=== PATIENT | female | born 1960 | race Caucasian/White ===

== ENCOUNTER 2020-03-31 11:50 | Outpatient (REF) | payer BC, SELFPAY | END 2020-03-31 11:51 | disposition home or self-care (01) | LOC: HO.LAB 11:50 | PROVIDERS: Visit Provider Internal Medicine | DX: Z01.419 Encounter for gynecological examination (general) (routine) without abnormal findings (principal) | CPT/HCPCS: 88142 ==

== ENCOUNTER 2020-04-02 | Outpatient (REF) | payer BC, SELFPAY ==
[2020-04-02 11:28] LABS: Urine Cytology See Pathology rpt
== END 2020-04-02 00:01 | disposition home or self-care (01) ==
LOC: HO.HMGCLNP
PROVIDERS: PCP Internal Medicine; Visit Provider Internal Medicine
DX: R31.29 Other microscopic hematuria (principal)
CPT/HCPCS: 88112

== ENCOUNTER 2020-04-19 13:49 | Outpatient (REF) | payer BC, SELFPAY ==
--- NOTE | 2020-04-19 13:52 | US_ITS ---
EXAMINATION: US RETROPERITONEAL LIMITED (RENAL ONLY) CLINICAL INFORMATION: Microscopic hematuria. COMPARISON: CT abdomen and pelvis dated 12/24/2018 TECHNIQUE: Real-time imaging of the kidneys. FINDINGS: RIGHT KIDNEY: 11.2 x 4.9 x 6.3 cm (SAG x AP x TRV). The kidney is normal in size, contour, and echogenicity. Renal cortical thickness is normal. No calculi or focal parenchymal lesions. No hydronephrosis. LEFT KIDNEY: 12.1 x 5.8 x 5.9 cm (SAG x AP x TRV). The kidney is normal in size, contour, and echogenicity. Renal cortical thickness is normal. No renal calculi or hydronephrosis. There is an anechoic cyst in the upper pole measuring 1.5 x 1.2 cm. A small cyst was seen on the previous CT abdomen exam 12/24/2018. US/US renal BI IMPRESSION: Small anechoic cyst upper pole left kidney measuring 1.[address] it measured 1 cm. Unremarkable right kidney. There are no echogenic bilateral renal calculi or hydronephrosis.
== END 2020-04-19 13:50 | disposition home or self-care (01) ==
LOC: HO.US 13:49
PROVIDERS: PCP Internal Medicine; Visit Provider Internal Medicine
DX: R31.29 Other microscopic hematuria (principal); E78.5 Hyperlipidemia, unspecified; E03.9 Hypothyroidism, unspecified; F17.200 Nicotine dependence, unspecified, uncomplicated
CPT/HCPCS: 76775

== ENCOUNTER 2020-04-29 09:01 | Outpatient (REF) | payer BC, SELFPAY ==
[2020-04-29 13:55] LABS: Urine Cytology See Pathology rpt
== END 2020-04-29 09:02 | disposition home or self-care (01) ==
LOC: HO.LNP 09:01
PROVIDERS: PCP Internal Medicine; Visit Provider Urology
DX: R31.29 Other microscopic hematuria (principal)
CPT/HCPCS: 81002; 88112

== ENCOUNTER → 2020-06-10 12:45 | Outpatient (BNVA) | payer BC, SELFPAY | PROVIDERS: PCP Internal Medicine; Visit Provider Urology | DX: N32.89 Other specified disorders of bladder (principal) | CPT/HCPCS: 52000; 81002 ==

== ENCOUNTER 2020-07-05 06:18 | Day surgery (SDC) | payer BC, SELFPAY ==
[2020-06-29 12:26] VITALS: BMI 28.3
[2020-07-05 06:48] VITALS: BP 138/74; PULSE 73; RESP 18; TEMP 37.1; O2SAT 98
--- NOTE | 2020-07-05 07:24 | P.CONAN_ITS ---
[facility] Active Problems Active Problems: All Active Problems (Updated 06/29/20 @ 12:23 by Morelia rincon) Erythematous bladder mucosa (Acute) Hypothyroidism (Acute) Tobacco dependence (Acute) Annual physical exam (Acute) Microhematuria (Acute) Past Medical History Medical History (Updated 06/29/20 @ 12:23 by Morelia Fraire) Annual physical exam Hyperlipidemia Hypothyroidism Microhematuria Murmur Tobacco dependence Family History Family History Father Dementia Mother Myocardial infarction Surgical History Surgical History (Updated 06/29/20 @ 12:24 by Morelia Fraire) H/O colonoscopy Hx of cystoscopy Hx of tubal ligation Social History Social History (Updated 06/29/20 @ 12:23 by Morelia Fraire) Alcohol intake: current Alcohol intake frequency: holidays/special occasions only Smoking Status: Current every day smoker Cigarettes Per Day: 10 Years Smoked: 44 Use of substances other than those prescribed or required for medical reasons: No Have you been hit, kicked, punched, or otherwise hurt by someone within the past year? If so, by whom?: No Advance Directives: No Advance Directives Information Provided: No Advance Directives on File: No Meds Allergies Allergy/AdvReac Type Severity Reaction Status Date / Time amoxicillin Allergy Severe diarrhea Verified 06/29/20 12:24 Sulfa (Sulfonamide Allergy Severe hives Verified 06/29/20 12:25 Antibiotics) Active Medications: Current Medications Generic Name Dose Route Start Last Admin Trade Name Freq PRN Reason Stop Dose Admin Lactated Ringer's 1,000 mls @ 50 mls/hr 07/05/20 07:30 Lr IV .Q20H BRAD Home Medications Medication Instructions Recorded Confirmed Last Taken Type simvastatin 40 mg tablet 40 mg PO DAILY 03/31/20 06/29/20 Unknown History Exam Exam Date and Time: July 05, [id number] Height,Weight and Vital Signs: Height 5 ft 5 in Weight 77.111 kg Last Vital Signs Temp 98.7 F 07/05/20 06:48 Pulse 73 07/05/20 06:48 Resp 18 07/05/20 06:48 BP 138/74 07/05/20 06:48 Pulse Ox 98 07/05/20 06:48 Airway Mallampati Class: II TM Dist: >3cm Neck ROM: Full Heart: RRR Lungs: CTAcBL Assessment and Plan Assessment Anesthesia Assessment: Anesthesia Plan Discussed and Chart Reviewed Final Anesthetic Review NPO: Yes ASA Class: II Final Preanesthetic Review: No Changes in Pt Med Stat and Consent Obtained/Reviewed Patient Risk: Intermediate Procedure Risk: Intermediate Anesthetic Plan Anesthetic Plan: MAC: Disposition: Standard PACU
[2020-07-05] MEDS: levoFLOXacin 500 MG TABLET PO (07:35)
[2020-07-05] MEDS: Lactated Ringers 1,000 ML 50 ML IV (07:36)
--- NOTE | 2020-07-05 08:18 | MHC.SHP ---
Pre-Procedural Eval Section A The patient is an INPATIENT: No Changes since office visit: No Cold of Flu in the past 2 weeks, No New Medical Problems, No Changes in Medication and No Patient answered all questions The History & Physical has been completed within 30 days and I have reviewed it.: Yes Section B Chief Complaint: Disorder of bladder Allergies: Allergies Allergy/AdvReac Type Severity Reaction Status Date / Time amoxicillin Allergy Severe diarrhea Verified 06/29/20 12:24 Sulfa (Sulfonamide Allergy Severe hives Verified 06/29/20 12:25 Antibiotics) Plan I have reviewed the history and physical and performed a pertinent physical examination on my patient. No changes have occurred unless specified. Cystoscopy, bladder biopsy fulguration
--- NOTE | 2020-07-05 08:50 | PM.OP ---
Brief Operative Note Date of Service: 07/05/20 Pre-op diagnosis: Bladder lesion Post-op diagnosis: same Procedure: Bladder biopsy with fulguration Surgeon: Jack Traore MD Anesthesia: MAC Estimated blood loss (mL): 0 Pathology: other (Bladder biopsy) Condition: stable Disposition: same day
--- NOTE | 2020-07-05 08:52 | W.PM.OPN ---
Operative Note Operative Note Date of Service: 07/05/20 Narrative: PreOperative Diagnosis: A bladder erythema Post Operative Diagnosis: Bladder erythema Procedure: Cystoscopy with bladder biopsy fulguration Surgeon: Dr Jack Traore Anesthesia: Sedation Indications for procedure: Bladder erythema on cystoscopy for microscopic hematuria Procedure: After informed consent was verified the patient was brought to the operating room and placed in a supine position. anesthesia was administered per protocol. Patient was placed in a modified dorsal lithotomy position and prepped and draped in sterile fashion. Antibiotics being given. Safety pause time-out was performed. Cystoscope was placed. The bladder had injected erythema posteriorly. There were 2 or 3 areas of neovascularity. These were biopsied and fulgurated. She tolerated this well and transferred in a stable condition to recovery area Pathology: Bladder biopsies Drains: None
[2020-07-05 08:58] VITALS: BP 121/61; PULSE 68; RESP 16; TEMP 37.1; O2SAT 96
[2020-07-05 09:02] VITALS: BP 141/65; PULSE 70; RESP 16; O2SAT 97
[2020-07-05 09:07] VITALS: BP 137/93; PULSE 63; RESP 16; O2SAT 97
[2020-07-05] MEDS: Phenazopyridine HCL 100 MG TABLET PO (09:09)
[2020-07-05 09:11] VITALS: BP 153/68; PULSE 65; RESP 16; O2SAT 98
[2020-07-05 09:24] VITALS: BP 128/68; PULSE 65; RESP 16; O2SAT 100
[2020-07-05] MEDS: NaPROXEN 500 MG TABLET PO (09:26)
== END 2020-07-05 10:10 | disposition home or self-care (01) ==
PROVIDERS: PCP Internal Medicine; Visit Provider Urology
PROC: 0T5B8ZZ Destruction of Bladder, Via Natural or Artificial Opening Endoscopic (ICD-10-PCS; CPT 52204; principal; 2020-07-05 08:00)
DX: N30.20 Other chronic cystitis without hematuria (principal); R31.29 Other microscopic hematuria; F17.210 Nicotine dependence, cigarettes, uncomplicated; Z79.899 Other long term (current) drug therapy; Z88.1 Allergy status to other antibiotic agents; Z88.2 Allergy status to sulfonamides
CPT/HCPCS: 52204; 88305; J2250; J3010

== ENCOUNTER → 2020-07-20 15:08 | Outpatient (BNVA) | payer BC, SELFPAY | PROVIDERS: PCP Internal Medicine; Visit Provider Urology ==

== ENCOUNTER 2021-03-10 06:14 | Outpatient (REF) | payer BC, SELFPAY ==
[2021-03-10 11:16] LABS: Appearance Urine HAZY; Color Urine YELLOW; Glucose Urine UA NEG (NEG); Leukocyte Esterase Urine NEG (NEG); Nitrite Urine NEG (NEG); Specific Gravity - Urine 1.015 (1.005-1.025); Urine Blood 3+ (NEG); Urine Ketones NEG (NEG); Urine Protein 1+ MG/DL (NEG-TRACE)
[2021-03-10 11:22] LABS: Hematocrit 40.2 % (37.0-47.0); Hemoglobin 13.3 g/dl (12.0-16.0); Mean Corpuscular HGB Conc 33.1 g/dl (31.0-35.0); Mean Corpuscular Hemoglobin 31.6 pg (27.0-33.0); Mean Corpuscular Volume 95.5 fL (80.0-98.0); Mean Platelet Volume 11.3 fL (9.4-12.3); Platelet Count 281 X10*3/uL (160-400); Red Blood Count 4.21 X10*6/uL (4.20-5.50); Red Cell Distribution Width 13.2 % (11.0-16.0); White Blood Count 7.6 X10*3/uL (4.8-10.8)
[2021-03-10 11:34] LABS: Alanine Aminotransferase 16 U/L (0-31); Albumin Level 4.2 g/dL (3.5-5.0); Alkaline Phosphatase 60 U/L (39-117); Anion Gap 13 (12-20); Aspartate Amino Transferase 16 U/L (5-31); Bilirubin Total 0.5 mg/dL (0.0-1.0); Blood Urea Nitrogen 12 mg/dL (9-16); Calcium 8.8 mg/dL (8.4-10.2); Carbon Dioxide 27 mmol/L (22-29); Chloride 107 mmol/L (96-108); Cholesterol 165 mg/dL; Estimated Glomerular Filt Rate > 60; Glucose Fasting 97 mg/dL (60-99); HDL Cholesterol 52 mg/dL; LDL Cholesterol Calculated 95 mg/dl; Sodium 143 mmol/L (135-145); Total Protein 6.7 g/dL (6.5-8.0); Triglycerides 93 mg/dL
[2021-03-10 11:40] LABS: Squamous Epithelial Cell Urine 2+ /LPF; WBC Urine 0 /HPF (0-4)
[2021-03-10 11:56] LABS: TSH reflex Free T4 1.03 uIU/mL (0.32-4.0)
== END 2021-03-10 06:15 | disposition home or self-care (01) ==
LOC: HO.HMGCLDS 06:14
PROVIDERS: PCP Internal Medicine; Visit Provider Internal Medicine
DX: Z00.00 Encounter for general adult medical examination without abnormal findings (principal); E03.9 Hypothyroidism, unspecified; F17.200 Nicotine dependence, unspecified, uncomplicated; R31.29 Other microscopic hematuria
CPT/HCPCS: 36415; 80053; 80061; 81001; 84443; 85027

== ENCOUNTER 2021-11-29 11:01 | Outpatient (REF) | payer OTHER, SELFPAY ==
[2021-12-03 14:37] LABS: HPV mRNA E6/E7 Not Detected (Not Detected)
== END 2021-11-29 11:02 | disposition home or self-care (01) ==
LOC: HO.LAB 11:01
PROVIDERS: Visit Provider Internal Medicine
DX: Z01.419 Encounter for gynecological examination (general) (routine) without abnormal findings (principal); Z11.51 Encounter for screening for human papillomavirus (HPV)
CPT/HCPCS: 87624; 88142

== ENCOUNTER 2021-11-30 07:56 | Outpatient (REF) | payer OTHER, SELFPAY ==
[2021-11-30 11:27] LABS: MANUAL DIFF FLAG NO
[2021-11-30 11:55] LABS: Basophils Absolute Auto 0.1 X10*3/uL (0.0-0.2); Basophils Percent Auto 1.1 % (0-2); Eosinophils Absolute Auto 0.2 X10*3/uL (0.0-0.4); Eosinophils Percent Auto 3.4 % (0-4); Hematocrit 41.5 % (37.0-47.0); Hemoglobin 13.8 g/dl (12.0-16.0); Imm Gran Abs Auto 0.03 X10*3/uL (0.00-0.03); Imm Gran Pct Auto 0.5 % (0.0-0.4); Lymphocytes Percent Auto 32.4 % (20-40); Mean Corpuscular HGB Conc 33.3 g/dl (31.0-35.0); Mean Corpuscular Hemoglobin 32.7 pg (27.0-33.0); Mean Corpuscular Volume 98.3 fL (80.0-98.0); Mean Platelet Volume 10.6 fL (9.4-12.3); Monocytes Absolute Auto 0.5 X10*3/uL (0.1-1.2); Neutrophils Absolute Auto 3.4 x10*3/uL (2.0-8.3); Neutrophils Percent Auto 54.6 % (45-73); Platelet Count 274 X10*3/uL (160-400); Red Blood Count 4.22 X10*6/uL (4.20-5.50); Red Cell Distribution Width 13.1 % (11.0-16.0); White Blood Count 6.1 X10*3/uL (4.8-10.8)
[2021-11-30 14:26] LABS: TSH reflex Free T4 1.09 uIU/mL (0.32-4.0)
[2021-11-30 14:46] LABS: Alanine Aminotransferase 17 U/L (0-31); Albumin Level 4.4 g/dL (3.5-5.0); Alkaline Phosphatase 59 U/L (39-117); Anion Gap 15 (12-20); Aspartate Amino Transferase 16 U/L (5-31); Bilirubin Total 0.4 mg/dL (0.0-1.0); Blood Urea Nitrogen 12 mg/dL (9-16); Calcium 9.4 mg/dL (8.4-10.2); Carbon Dioxide 29 mmol/L (22-29); Chloride 105 mmol/L (96-108); Cholesterol 184 mg/dL; Estimated Glomerular Filt Rate > 60; Glucose Fasting 95 mg/dL (60-99); HDL Cholesterol 51 mg/dL; LDL Cholesterol Calculated 108 mg/dl; Potassium 4.7 mmol/L (3.3-5.1); Sodium 144 mmol/L (135-145); Total Protein 6.9 g/dL (6.5-8.0); Triglycerides 127 mg/dL
== END 2021-11-30 07:57 | disposition home or self-care (01) ==
LOC: HO.HMGCLDS 07:56
PROVIDERS: PCP Internal Medicine; Visit Provider Internal Medicine
DX: Z00.00 Encounter for general adult medical examination without abnormal findings (principal); E78.5 Hyperlipidemia, unspecified
CPT/HCPCS: 36415; 80053; 80061; 84443; 85025

== ENCOUNTER 2021-12-01 07:08 | Outpatient (REF) | payer OTHER, SELFPAY ==
[2021-12-01 11:29] LABS: Appearance Urine CLEAR; Color Urine YELLOW; Glucose Urine UA NEG (NEG); Leukocyte Esterase Urine NEG (NEG); Nitrite Urine NEG (NEG); PH 6.5 (5.0-8.0); Specific Gravity - Urine 1.015 (1.005-1.025); Urine Blood 3+ (NEG); Urine Ketones NEG (NEG); Urine Protein NEG (NEG-TRACE)
[2021-12-01 11:48] LABS: Squamous Epithelial Cell Urine TRACE /LPF; WBC Urine 0-2 /HPF (0-4)
== END 2021-12-01 07:09 | disposition home or self-care (01) ==
LOC: HO.HMGCLDS 07:08
PROVIDERS: PCP Internal Medicine; Visit Provider Internal Medicine
DX: Z00.00 Encounter for general adult medical examination without abnormal findings (principal); E78.5 Hyperlipidemia, unspecified
CPT/HCPCS: 81001

== ENCOUNTER 2022-04-06 10:10 | Emergency (ER) | payer OTHER, SELFPAY ==
[2022-04-06] VITALS (7 sets, daily range): BP systolic 133–168; BP diastolic 56–83; PULSE 63–84; RESP 17–20; TEMP 36.4; O2SAT 95–97; BMI 28.3
--- NOTE | ~2022-04-06 | CT_ITS ---
EXAMINATION: CT ABDOMEN AND PELVIS WITHOUT CONTRAST CLINICAL INFORMATION: Right flank pain/renal stone COMPARISON: Ultrasound kidneys 04/19/[address] abdomen pelvis 12/24/2018 TECHNIQUE: Multidetector volumetric imaging was performed from the superior aspect of the liver through the pubic symphysis. Sagittal and coronal reformatted images were obtained on the technologist's workstation. This CT examination was performed using dose optimization techniques as appropriate, variously including the following: *Automated exposure control *Adjustment of mA and/or kV according to patient size (this includes techniques or standardized protocols for targeted exams where dose is matched to indication/reason for exam; i.e. extremities or head) *Use of iterative reconstruction technique DLP: 585 mGy-cm FINDINGS: LUNG BASES: The visualized lung bases are unremarkable. LIVER, GALLBLADDER, AND BILIARY TREE: The liver is normal in size, shape, and attenuation. A small benign simple cyst is noted in the left lobe of the liver adjacent to the falciform ligament. No worrisome solid focal hepatic lesion or biliary ductal dilatation is present. The gallbladder is unremarkable with no evidence of radiopaque gallstones, gallbladder wall thickening, or obvious pericholecystic inflammatory changes. PANCREAS: Unremarkable. SPLEEN: Unremarkable. ADRENAL GLANDS: Unremarkable. KIDNEYS AND URETERS: The kidneys are normal in size, shape, and attenuation. No hydronephrosis, hydroureter, or calculi seen. 1 cm rim calcified mass present in the right renal abebe most likely represents a small aneurysm probably measuring about 0.9 cm previously with less calcification. There is a 1.5 cm exophytic left upper pole cortical Bosniak class I cyst which needs no further imaging or follow-up. No perinephric stranding. BLADDER: Unremarkable. GASTROINTESTINAL TRACT: The small and large bowel are unremarkable. The appendix is unremarkable. ABDOMINAL WALL: No significant hernia is appreciated. LYMPH NODES: No retroperitoneal lymphadenopathy. VASCULAR: Some calcific atherosclerotic changes in the aorta and iliofemoral vessels. No aortic aneurysm PELVIC VISCERA: The uterus and adnexa are unremarkable. OSSEOUS STRUCTURES: Mild degenerative changes present at L1-L2. Large Schmorl's node causing compression of the superior endplate of T11. No bony destructive lesions. CT/CT abdomen pelvis wo IV con IMPRESSION: A cause for the patient's right flank pain has not been found. No renal calculi are seen. 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 Fleischner guidelines were followed.
--- NOTE | ~2022-04-06 | CT_ITS ---
EXAMINATION: CT ANGIOGRAM ABDOMEN CLINICAL INFORMATION: Question of renal artery aneurysm with right flank pain. COMPARISON: CT scan abdomen and pelvis performed a few hours ago. TECHNIQUE: Multiple axial images were obtained through the abdomen following the administration of 80 mL Omnipaque 350 intravenous contrast. Images were reviewed on a dedicated 3-D workstation. This CT examination was performed using dose optimization techniques as appropriate, variously including the following: *Automated exposure control *Adjustment of mA and/or kV according to patient size (this includes techniques or standardized protocols for targeted exams where dose is matched to indication/reason for exam; i.e. extremities or head) *Use of iterative reconstruction technique DLP: 316 mGy-cm FINDINGS: Compared to the study from just a few hours ago, there has been no interval change. This study confirms that the abnormality seen in right renal abebe is indeed a small calcified aneurysm measuring about 8 x 7 mm. The aneurysm arises from a renal bifurcation and has no exiting vessels. The mouth of the aneurysm is probably about 4 mm. There has been no change in appearance over the last few hours. CT/CT angio abdomen IMPRESSION: The abnormality seen in the right renal abebe is indeed an 8 mm aneurysm arising from a bifurcation point in the right renal artery. A followup exam in 1 to 2 years' time (no sooner) to document stability seems reasonable. Fleischner guidelines were followed.
--- NOTE | 2022-04-06 10:45 | ED_ITS ---
HPI - Abdominal Pain General Chief Complaint: Abdominal Pain Stated Complaint: Appendicitis sent over by walk in clinic Time Seen by Provider: 04/06/22 10:38 Source: patient Mode of arrival: ambulatory Limitations: no limitations Related Data Previous Rx's Medication Instructions Recorded levothyroxine 137 mcg tablet 137 mcg PO QAM #90 tabs 07/05/21 simvastatin 40 mg tablet 40 mg PO DAILY #90 tabs 03/01/22 Allergies Allergy/AdvReac Type Severity Reaction Status Date / Time amoxicillin Allergy Severe diarrhea Verified 04/06/22 09:33 Sulfa (Sulfonamide Allergy Severe hives Verified 04/06/22 09:33 Antibiotics) [facility] Past Medical History Medical History Annual physical exam Hyperlipidemia Hypothyroidism Microhematuria Murmur Tobacco dependence Surgical History H/O colonoscopy Hx of cystoscopy Hx of tubal ligation Family History Family History Father Dementia Mother Myocardial infarction Social History Social History Housing: House Alcohol intake: current Alcohol intake frequency: holidays/special occasions only Patient Tobacco Use Status: Current everyday Tobacco user Tobacco use type: Cigarette Cigarettes Per Day: 10 Years Smoked: 44 e-Cigarette/Vaping Use: Never Used Advance Directives: No Advance Directives Information Provided: No Current occupational status: unemployed Cognitive needs: No Hearing needs: No Vision needs: Yes Physical Exam ED Vital Signs: Vital Signs - 24 hr 04/06/22 10:18 04/06/22 11:46 04/06/22 13:05 Temperature 97.6 F Pulse Rate 84 84 77 Respiratory Rate 20 20 20 Blood Pressure 168/65 H 154/83 H 137/73 Pulse Oximetry 95 95 95 Oxygen Delivery Method Room Air Room Air Room Air 04/06/22 14:59 04/06/22 16:22 Temperature Pulse Rate 67 67 Respiratory Rate 20 17 Blood Pressure 133/63 142/76 H Pulse Oximetry 97 95 Oxygen Delivery Method Room Air Room Air BMI result Body Mass Index 28.3 Course Reevaluation(s) Reevaluation #1: IMPRESSION: A cause for the patient's right flank pain has not been found. No renal calculi are seen. 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 ? Fleischner guidelines were followed. Dictated By: Jayden Myers MD Signed By: <Electronically signed by Jayden Myers MD in OV> 04/06/22 1314 Reevaluation #2: patient with right renal artery aneursym on CT waiting on CTA, will sign out to Dr. Houston Time: 16:39 Medications Administered Discontinued Medications Generic Name Dose Route Start Last Admin Trade Name Freq PRN Reason Stop Dose Admin Diphenhydramine HCl 50 mg 04/06/22 15:12 04/06/22 15:16 Diphenhydramine Hcl 50 Mg/Ml Vial IVPUSH 04/06/22 15:13 50 mg ONCE ONE Administration Hydromorphone HCl 1 mg 04/06/22 12:54 04/06/22 12:59 Hydromorphone Hcl 1 Mg/Ml Syringe IVPUSH 04/06/22 12:55 1 mg ONCE ONE Administration Protocol Sodium Chloride 1,000 mls @ 200 mls/hr 04/06/22 10:45 04/06/22 11:40 Ns IVCONT 04/06/22 15:44 200 mls/hr .Q5H BRAD Administration Iohexol 100 ml 04/06/22 15:28 04/06/22 15:28 Iohexol 350 Mg/Ml 100 Ml Infus..Btl IV 04/06/22 15:29 80 ml ONCE ONE Administration Ketorolac Tromethamine 30 mg 04/06/22 10:45 04/06/22 11:39 Ketorolac Tromethamine 30 Mg/Ml Vial IVPUSH 04/06/22 10:46 30 mg ONCE ONE Administration Ondansetron HCl 4 mg 04/06/22 10:45 04/06/22 11:39 Ondansetron Hcl 4 Mg/2 Ml Vial IVPUSH 04/06/22 10:46 4 mg ONCE ONE Administration Discharge Plan Discharge Clinical Impression: Aneurysm artery, renal Prescriptions: No Action levothyroxine 137 mcg tablet 137 mcg PO QAM Qty: 90 3RF simvastatin 40 mg tablet 40 mg PO DAILY Qty: 90 3RF
[2022-04-06 11:12] LABS: MANUAL DIFF FLAG NO
[2022-04-06 11:16] LABS: Basophils Percent Auto 0.4 % (0-2); Eosinophils Percent Auto 0.2 % (0-4); Hematocrit 40.4 % (37.0-47.0); Hemoglobin 13.8 g/dl (12.0-16.0); Imm Gran Abs Auto 0.07 X10*3/uL (0.00-0.03); Imm Gran Pct Auto 0.7 % (0.0-0.4); Lymphocytes Absolute Auto 0.8 X10*3/uL (1.2-4.9); Lymphocytes Percent Auto 7.8 % (20-40); Mean Corpuscular HGB Conc 34.2 g/dl (31.0-35.0); Mean Corpuscular Hemoglobin 32.3 pg (27.0-33.0); Mean Corpuscular Volume 94.6 fL (80.0-98.0); Mean Platelet Volume 9.5 fL (9.4-12.3); Monocytes Absolute Auto 0.3 X10*3/uL (0.1-1.2); Neutrophils Absolute Auto 9.2 x10*3/uL (2.0-8.3); Neutrophils Percent Auto 87.9 % (45-73); Platelet Count 263 X10*3/uL (160-400); Red Blood Count 4.27 X10*6/uL (4.20-5.50); Red Cell Distribution Width 12.9 % (11.0-16.0); White Blood Count 10.5 X10*3/uL (4.8-10.8)
[2022-04-06 11:27] LABS: Anion Gap 15 (12-20); Blood Urea Nitrogen 7 mg/dL (9-16); Calcium 9.8 mg/dL (8.4-10.2); Carbon Dioxide 26 mmol/L (22-29); Chloride 102 mmol/L (96-108); Estimated Glomerular Filt Rate > 60; Glucose Random 180 mg/dL (60-115); Potassium 3.9 mmol/L (3.3-5.1); Sodium 139 mmol/L (135-145)
[2022-04-06] MEDS: ondansetron HCL 4 MG/2 ML VIAL IVPUSH (11:39)
[2022-04-06] MEDS: Ketorolac Tromethamine 30 MG/ML VIAL IVPUSH (11:39)
[2022-04-06] MEDS: 0.9 % Sodium Chloride 1,000 ML 200 ML IVCONT (11:40)
--- NOTE | 2022-04-06 11:48 | PC.NURSE ---
pt alert and oriented. complains of flank pain 02/06. no hx of kidney stones. gave her toredol and zofran. IV in place and fluids running.
[2022-04-06] MEDS: HYDROmorphone HCl 1 MG/ML SYRINGE IVPUSH ×2 (12:59→19:24)
--- NOTE | 2022-04-06 13:06 | PC.NURSE ---
Pt medicated as charted for persistent 10/10 rlq abd pain. VSS.
--- NOTE | 2022-04-06 15:03 | PC.NURSE ---
pt. alert and oriented. states morpheme helped with pain. pain now 7/10. put her on hospital monitor. HM normal sinus
[2022-04-06 15:15] LABS: Appearance Urine Clear; Color Urine Yellow; Glucose Urine UA Negative (Negative); Leukocyte Esterase Urine Negative (Negative); Nitrite Urine Negative (Negative); UMIC TRIGGER UACC YES; Urine Blood Moderate (2+) (Negative); Urine Ketones Negative (Negative); Urine Protein >=1000 (4+) mg/dL (Neg-Trace)
[2022-04-06] MEDS: diphenhydrAMINE HCL 50 MG/ML VIAL IVPUSH (15:16)
[2022-04-06 15:17] LABS: Bacteria Urine None Seen (None Seen); RBC Urine >20 /HPF (0-2); WBC Urine 0-5 /HPF (0-5)
[2022-04-06] MEDS: iohexoL 350 MG/ML 100 ML INFUS..BTL IV (15:28)
== END 2022-04-06 21:39 | disposition home or self-care (01) ==
PROVIDERS: Emergency Medicine; Emergency Provider Emergency Medicine Emergency Medical Services; PCP Internal Medicine
DX: I72.2 Aneurysm of renal artery (principal); F17.210 Nicotine dependence, cigarettes, uncomplicated; Z71.6 Tobacco abuse counseling; Z79.899 Other long term (current) drug therapy
CPT/HCPCS: 36415; 74175; 74176; 80048; 81001; 85025; 96374; 96375; 96376; 99284; J1170; J1200; J1885; J2405; Q9967

== ENCOUNTER → 2022-06-01 11:18 | Outpatient (BNVA) | payer OTHER, SELFPAY | PROVIDERS: PCP Internal Medicine; Visit Provider Surgery Vascular Surgery | DX: I72.2 Aneurysm of renal artery (principal) | CPT/HCPCS: 99202 ==

== ENCOUNTER 2022-11-21 06:49 | Outpatient (REF) | payer OTHER, SELFPAY ==
[2022-11-21 11:09] LABS: MANUAL DIFF FLAG NO
[2022-11-21 11:59] LABS: Basophils Absolute Auto 0.1 X10*3/uL (0.0-0.2); Basophils Percent Auto 0.9 % (0-2); Eosinophils Absolute Auto 0.2 X10*3/uL (0.0-0.4); Eosinophils Percent Auto 2.6 % (0-4); Hematocrit 44.3 % (37.0-47.0); Hemoglobin 14.2 g/dl (12.0-16.0); Imm Gran Abs Auto 0.02 X10*3/uL (0.00-0.03); Imm Gran Pct Auto 0.3 % (0.0-0.4); Lymphocytes Absolute Auto 1.7 X10*3/uL (1.2-4.9); Lymphocytes Percent Auto 28.3 % (20-40); Mean Corpuscular HGB Conc 32.1 g/dl (31.0-35.0); Mean Corpuscular Volume 99.8 fL (80.0-98.0); Mean Platelet Volume 11.1 fL (9.4-12.3); Monocytes Absolute Auto 0.3 X10*3/uL (0.1-1.2); Monocytes Percent Auto 5.7 % (2-11); Neutrophils Absolute Auto 3.6 x10*3/uL (2.0-8.3); Neutrophils Percent Auto 62.2 % (45-73); Platelet Count 259 X10*3/uL (160-400); Red Blood Count 4.44 X10*6/uL (4.20-5.50); Red Cell Distribution Width 13.2 % (11.0-16.0); White Blood Count 5.8 X10*3/uL (4.8-10.8)
[2022-11-21 13:03] LABS: Alanine Aminotransferase 18 U/L (0-31); Albumin Level 4.2 g/dL (3.5-5.0); Alkaline Phosphatase 61 U/L (39-117); Anion Gap 10 (12-20); Aspartate Amino Transferase 18 U/L (5-31); Bilirubin Total 0.4 mg/dL (0.0-1.0); Blood Urea Nitrogen 10 mg/dL (9-16); Calcium 9.5 mg/dL (8.4-10.2); Carbon Dioxide 30 mmol/L (22-29); Chloride 107 mmol/L (96-108); Cholesterol 143 mg/dL; Estimated Glomerular Filt Rate > 60; Glucose Fasting 98 mg/dL (60-99); HDL Cholesterol 44 mg/dL; LDL Cholesterol Calculated 75 mg/dl; Sodium 143 mmol/L (135-145); Total Protein 7.1 g/dL (6.5-8.0); Triglycerides 122 mg/dL
[2022-11-21 13:04] LABS: TSH reflex Free T4 3.96 uIU/mL (0.32-4.0); Vitamin D 25-OH Total 43.1 ng/mL (>30)
== END 2022-11-21 06:50 | disposition home or self-care (01) ==
LOC: HO.HMGCLDS 06:49
PROVIDERS: PCP Internal Medicine; Visit Provider Internal Medicine
DX: Z00.00 Encounter for general adult medical examination without abnormal findings (principal); E03.9 Hypothyroidism, unspecified; E78.5 Hyperlipidemia, unspecified
CPT/HCPCS: 36415; 80053; 80061; 82306; 84443; 85025

== ENCOUNTER 2022-11-24 08:30 | Outpatient (REF) | payer OTHER, SELFPAY ==
[2022-11-24 11:55] LABS: Appearance Urine Cloudy; Color Urine Yellow; Glucose Urine UA Negative (Negative); Leukocyte Esterase Urine Trace (Negative); Nitrite Urine Negative (Negative); PH 7.5 (5.0-9.0); Specific Gravity - Urine 1.015 (1.005-1.025); UMIC TRIGGER UA YES; Urine Blood Small (1+) (Negative); Urine Ketones Negative (Negative); Urine Protein Negative (Neg-Trace)
[2022-11-24 11:59] LABS: Bacteria Urine 3+ (None Seen); Hyaline Casts Urine 0-2 /LPF (0-2); RBC Urine >20 /HPF (0-2); WBC Urine 0-5 /HPF (0-5)
== END 2022-11-24 08:31 | disposition home or self-care (01) ==
LOC: HO.HMGCLNP 08:30
PROVIDERS: PCP Internal Medicine; Visit Provider Internal Medicine
DX: Z00.00 Encounter for general adult medical examination without abnormal findings (principal); E78.5 Hyperlipidemia, unspecified
CPT/HCPCS: 81001

== ENCOUNTER 2022-12-19 07:30 | Outpatient (AMB) | payer OTHER, SELFPAY ==
--- NOTE | 2022-12-19 07:35 | A.OFFPC_ITS ---
Vital Signs 12/19/22 07:36 Height 5 ft 5 in Weight 160 lb BMI 26.6 BP 128/80 Blood Pressure Location Lt brachial Position Sitting Pulse 97 Pulse Source Pulse Oximeter Pulse Oximetry (%) 98 Oxygen Delivery Method Room Air Intake Visit Reasons: Annual PE Intake Note: Pt is here today for PE. Allergies amoxicillin Allergy (Severe, Verified 12/19/22 08:04) diarrhea Sulfa (Sulfonamide Antibiotics) Allergy (Severe, Verified 12/19/22 08:04) hives Medication List - Last Reconciled 12/19/22 by Val Brothers MD levothyroxine 137 mcg PO QAM simvastatin 40 mg PO DAILY Tobacco use date assessed: 11/30/22 Dental Screening Dental Screen Date: 12/19/22 Did you have a dental visit in the last 12 months?: No Did you have a dental problem in the last 6 months where you did not have access to dental care?: No Was dental information given to patient?: Patient declined HPI Annual PE HPI Details Pt presents for PE. She has been under lot of stress because her had quadruple bypass surgery and her brother in January. Patient denies depression or suicidal ideation but is interested in seeing a counselor. Patient continues to smoke 6 cigarettes a day and is trying to quit. [facility] Medical History (Updated 12/19/22 @ 08:50 by Val Brothers MD) Annual physical exam Hyperlipidemia Hypothyroidism Microhematuria Tobacco dependence Surgical History H/O colonoscopy Hx of cystoscopy Hx of tubal ligation Family History Father Dementia Mother Myocardial infarction Social History Housing: House Alcohol intake: current Alcohol intake frequency: holidays/special occasions only Patient Tobacco Use Status: Current everyday Tobacco user Tobacco use type: Cigarette Cigarettes Per Day: 7 Years Smoked: 44 e-Cigarette/Vaping Use: Never Used Current occupational status: unemployed Cognitive needs: No Hearing needs: No Vision needs: Yes Questionnaire PHQ-9 Over the last 2 weeks, how often have you been bothered by any of the following problems? 1. Little interest or pleasure in doing things: several days 2. Feeling down, depressed, or hopeless: several days 3. Trouble falling or staying asleep, or sleeping too much: several days 4. Feeling tired or having little energy: several days 5. Poor appetite or overeating: several days 6. Feeling bad about yourself - or that you are a failure or have let yourself or your family down: more than half the days 7. Trouble concentrating on things, such as reading the newspaper or watching television: not at all 8. Moving or speaking so slowly that other people could have noticed. Or the opposite - being so fidgety or restless that you have been moving around a lot more than usual: not at all 9. Thoughts that you would be better off or of hurting yourself in some way: not at all Total score: 7 Depression Screening Interpretation: Negative Source: Developed by Drs. Jose Choi, Portia Neff, Ray Pulido and colleagues, with an educational kamari from [employer]. Thrive Questionnaire Date Thrive assessed: 12/19/22 I am a: Patient What is your living situation today?: I have a steady place to live Within the past 12 months, did the food you bought not last and you didn't have the money to get more?: Never true Within the past 12 months, did you worry whether your food would run out before you got money to buy more?: Never true Do you have trouble paying for medicines?: No Do you have trouble getting transportation to medical appointments?: No Do you have trouble paying your heating and electricity bill?: No Do you have trouble taking care of your child, family member or friend?: No Do you have trouble with day-to-day activities such as bathing, preparing meals, shopping, managing finances, etc.?: No Are you currently unemployed and looking for a job?: No Are you interested in more education?: No Please select the resources that you would like help with: None Currently or been in a relationship where the following occur: no concerns reported ARIEL-7 AMB Questionnaire ARIEL-7 Date ARIEL - 7 assessed: 12/19/22 Feeling nervous, anxious, or on edge: 1 = Several days Not being able to stop or control worryin = Not at all Worrying too much about different things: 0 = Not at all Trouble relaxin = Several days Being so restless that it is hard to sit still: 0 = Not at all Becoming easily annoyed or irritable: 0 = Not at all Feeling afraid as if something awful might happen: 0 = Not at all Total ARIEL-7 score (0-4 normal; 5-9 mild; 10-14 moderate; 15-21 severe): 2 Source: Developed by Drs. Jose Choi, Portia Neff, Ray Pulido and colleagues, with an educational kamari from [employer]. Review of Systems Const All systems reviewed & are unremarkable except as noted in HPI and below Reports no additional complaints Eyes Reports no additional complaints ENT Reports no additional complaints Card Reports no additional complaints Resp Reports no additional complaints GI Reports no additional complaints Reports no additional complaints Physical exam (Primary Care) Vital Signs: Last Vital Signs Pulse 97 12/19/22 07:36 BP 128/80 12/19/22 07:36 Pulse Ox 98 12/19/22 07:36 Oxygen Delivery Method Room Air 12/19/22 07:36 BMI result Body Mass Index 26.6 Tobacco/Smoking Status: Tobacco use Status Tobacco use date assessed 11/30/22 12/19/22 07:35 Patient Tobacco Use Status Current everyday Tobacco 12/19/22 07:35 Tobacco use type Cigarette 12/19/22 07:35 e-Cigarette/Vaping Use Never Used 12/19/22 07:35 Depression Screening Interpretation: Negative Thrive Assessment: Date of Thrive Assessment Date Thrive assessed 11/29/21 12/19/22 07:35 Currently or been in a relationship where the following occur: no concerns reported Const General: no acute distress HENMT Head: Yes normal to inspection Ears: hearing grossly normal bilaterally Face and sinus: Yes normal facial exam Mouth: Normal oral and palatal mucosa present Throat: Yes posterior oropharynx normal Eyes General: appearance normal, both eyes and all related structures Neck Neck: Yes no lymphadenopathy and Yes supple Resp Effort & Inspection: normal respiratory effort Auscultation: clear to auscultation bilaterally Cardio Rhythm: regular rhythm Heart sounds: S1 normal heart sound present and S2 normal heart sound present GI Inspection: Yes normal to inspection Palpation (GI): Soft to palpation Percussion: Yes normal to percussion Auscultation: normal bowel sounds Assessment and Plan Assessment & Plan (1) Anxiety: Code(s): F41.9 - Anxiety disorder, unspecified Plan: Stress management discussed with the patient. She is not interested in taking medication. She will be referred for the counseling (2) Renal artery aneurysm: Comment: ct scan 04/20 stable , recheck in 2 yrs Code(s): I72.2 - Aneurysm of renal artery (3) Hyperlipidemia: Code(s): E78.5 - Hyperlipidemia, unspecified Plan: Continue statin (4) Hypothyroidism: Code(s): E03.9 - Hypothyroidism, unspecified Plan: Continue levothyroxine (5) Tobacco dependence: Code(s): F17.200 - Nicotine dependence, unspecified, uncomplicated Plan: Tobacco quitting discussed with the patient (6) Annual physical exam: Code(s): Z00.00 - Encounter for general adult medical examination without abnormal findings Plan: Regular physical activity well-balanced diet discussed with the patient return in 1 year with fasting labs before. Patient is up-to-date with mammogram and colonoscopy Orders: Orders Comprehensive [place]. Panel Fast 365 Days E03.9 - Hypothyroidism, unspecified, E55.9 - Vitamin D deficiency, unspecified, E78.5 - Hyperlipidemia, unspecified, Z00.00 - Encounter for general adult medical examination without abnormal findings Lipid Panel 365 Days E03.9 - Hypothyroidism, unspecified, E55.9 - Vitamin D deficiency, unspecified, E78.5 - Hyperlipidemia, unspecified, Z00.00 - Encounter for general adult medical examination without abnormal findings TSH reflex Free T4 365 Days E03.9 - Hypothyroidism, unspecified, E55.9 - Vitamin D deficiency, unspecified, E78.5 - Hyperlipidemia, unspecified, Z00.00 - Encounter for general adult medical examination without abnormal findings Vitamin D 25-OH Total 365 Days E03.9 - Hypothyroidism, unspecified, E55.9 - Vitamin D deficiency, unspecified, E78.5 - Hyperlipidemia, unspecified, Z00.00 - Encounter for general adult medical examination without abnormal findings Complete Blood Count Auto Diff 365 Days E03.9 - Hypothyroidism, unspecified, E55.9 - Vitamin D deficiency, unspecified, E78.5 - Hyperlipidemia, unspecified, Z00.00 - Encounter for general adult medical examination without abnormal findings Referrals Counseling Referral F41.9 - Anxiety disorder, unspecified Coding Level of Care Code Est Pt Prev Care 40-64y(38698) Diagnoses Anxiety F41.9 Renal artery aneurysm I72.2 Hyperlipidemia E78.5 Hypothyroidism E03.9 Tobacco dependence F17.200 Annual physical exam Z00.00
[2022-12-19 07:36] VITALS: BP 128/80; PULSE 97; O2SAT 98; BMI 26.6
== END 2022-12-19 08:50 | disposition home or self-care (01) ==
PROVIDERS: PCP Internal Medicine; Visit Provider Internal Medicine
DX: Z00.00 Encounter for general adult medical examination without abnormal findings (principal); F41.9 Anxiety disorder, unspecified; E03.9 Hypothyroidism, unspecified; F17.200 Nicotine dependence, unspecified, uncomplicated; I72.2 Aneurysm of renal artery; E78.5 Hyperlipidemia, unspecified
CPT/HCPCS: 99396

== ENCOUNTER 2023-03-30 13:16 | Outpatient (AMB) | payer OTHER, SELFPAY ==
[2023-03-30 13:41] VITALS: BP 150/70; PULSE 96; TEMP 36.3; O2SAT 98; BMI 27.1
--- NOTE | 2023-03-30 13:41 | AM.OFFWIN_ITS ---
Intake Vital Signs 03/30/23 13:41 Height 5 ft 5 in Weight 163 lb BMI 27.1 BP 150/70 H Blood Pressure Location Rt brachial Position Sitting Pulse 96 Pulse Source Pulse Oximeter Temp 97.3 F Pulse Oximetry (%) 98 Intake Visit Reasons: EST/swollen gland on right lower [id number] Intake Note: PT is here todya for swollen gland on right lower jaw started 1 week ago Patient Tobacco Use Status: Current everyday Tobacco user Allergies amoxicillin Allergy (Severe, Verified 03/30/23 13:42) diarrhea Sulfa (Sulfonamide Antibiotics) Allergy (Severe, Verified 03/30/23 13:42) hives Do you need a note to return to daycare/school/sports/work: No HPI HPI Comments History of Present Illness Details This is a 62-year-old female who presents to the office today complaining of left ear pain and left sided neck swelling. Patient states she started to develop left-sided ear pain and irritation approximately 2 days ago. She then woke up with swelling of the left side of her neck yesterday. She denies any fevers or chills. She denies any weakness or malaise. She denies any erythema or rashes. She is otherwise feeling well. [facility] Medical History (Updated 12/19/22 @ 08:50 by Val Brothers MD) Tobacco dependence Annual physical exam Microhematuria Hyperlipidemia Hypothyroidism Surgical History Hx of cystoscopy Hx of tubal ligation H/O colonoscopy Family History Father Dementia Mother Myocardial infarction Social History Housing: House Alcohol intake: current Alcohol intake frequency: holidays/special occasions only Patient Tobacco Use Status: Current everyday Tobacco user Tobacco use type: Cigarette Cigarettes Per Day: 7 Years Smoked: 44 e-Cigarette/Vaping Use: Never Used Current occupational status: unemployed Cognitive needs: No Hearing needs: No Vision needs: Yes Review of Systems Const All systems reviewed & are unremarkable except as noted in HPI and below Reports no additional complaints Eyes Reports no additional complaints ENT Reports no additional complaints Card Reports no additional complaints Resp Reports no additional complaints GI Reports no additional complaints Reports no additional complaints Musc Reports no additional complaints Skin/Breast Reports system reviewed and no additional complaints, except as documented Neuro Reports no additional complaints Psych Reports no additional complaints Endo Reports no additional complaints Emil/Lymph Reports no additional complaints Aller/Immun Reports no additional complaints Physical Exam Vital Signs: Last Vital Signs Temp 97.3 F 03/30/23 13:41 Pulse 96 03/30/23 13:41 BP 150/70 H 03/30/23 13:41 Pulse Ox 98 03/30/23 13:41 BMI result Body Mass Index 27.1 Const Other: Vital signs reviewed. Constitutional: Non-toxic appearing. No acute distress. Well-developed and well-nourished. HEENT: Normocephalic and atraumatic. Her left tympanic membrane is slightly erythematous and bulging. Her right tympanic membrane is within normal limits. No postauricular tenderness to palpation, swelling, mass, or erythema. Skin: Warm and dry. No rashes or lesions noted. Neck: Full and painless range of motion. Mild swelling of the left side of the neck, left jaw, and left preauricular region. Cardio: Regular rate. No lower extremity edema. No JVD. Pulmonary: No respiratory distress. No accessory muscle usage. Gastrointestinal: Soft, nontender, and nondistended in all 4 quadrants. Musculoskeletal: Normal range of motion in joints throughout the body. No deformity or other signs of injury. Neuro: Alert and oriented x4. Cranial nerves 2-12 grossly intact. No focal deficits appreciated. Psych: Normal mood and affect. Assessment & Plan Assessment & Plan (1) Acute otitis media, left: Code(s): H66.92 - Otitis media, unspecified, left ear Plan: This is a 62-year-old female presenting to the office complaining of left-sided ear pain and left-sided neck/ facial swelling. On physical examination, patient has erythema and bulging of the left tympanic membrane consistent with acute otitis media. She also has some mild swelling of the left preauricular region, left cheek, and left upper neck. she has no postauricular swelling, erythema, or tenderness to palpation to suggest acute mastoiditis. Patient denies any fever / chills, her physical exam is otherwise benign, and she is overall nontoxic appearing and does not appear to have any evidence of a systemic infection. I believe this patient's facial swelling is likely reactive lymphadenopathy in the setting of acute otitis media. Patient was given a prescription for p.o. cefdinir 300 mg twice daily x7 days given amoxicillin allergy (not true allergy, just diarrhea). Patient was instructed to follow-up with at her primary care physician if the swelling does not improve for a possible ultrasound of the area. Patient verbalizes her understanding and she is in agreement with the plan. Medications: New cefdinir 300 mg PO BID 14 caps 0RF Coding Level of Care Code Est Pt Level 3 (67897) Diagnoses Acute otitis media, left H66.92
== END 2023-03-30 14:54 | disposition home or self-care (01) ==
PROVIDERS: PCP Internal Medicine; Visit Provider Physician Assistant Medical
DX: H66.92 Otitis media, unspecified, left ear (principal)
CPT/HCPCS: 99213

== ENCOUNTER 2023-05-31 10:09 | Outpatient (REF) | payer OTHER, SELFPAY ==
--- NOTE | ~2023-05-31 | CT_ITS ---
EXAMINATION: CT ANGIOGRAPHY ABDOMEN AND PELVIS WITHOUT AND WITH CONTRAST CLINICAL INFORMATION: Renal artery aneurysm COMPARISON: CTA abdomen/pelvis 04/06/2022 TECHNIQUE: Initial noncontrast localizing airport sales agent images were obtained. A timing bolus at the level of the celiac artery was calculated. Subsequently, arterial phase multidetector volumetric imaging was performed through the abdomen and pelvis following the administration of 75 mL Omnipaque 350 intravenous contrast. No contrast reaction reported. Sagittal and coronal reformatted images were obtained on the technologist workstation. After extensive post-processing on a dedicated 3-D workstation, 3-D reformatted images were uploaded to PACS and reviewed as well. This CT examination was performed using dose optimization techniques as appropriate, variously including the following: *Automated exposure control *Adjustment of mA and/or kV according to patient size (this includes techniques or standardized protocols for targeted exams where dose is matched to indication/reason for exam; i.e. extremities or head) *Use of iterative reconstruction technique DLP: 243 mGy-cm FINDINGS: VASCULAR: 1. No abdominal aortic aneurysm or dissection. 2. Iliac Arteries: The common, external and internal iliac arteries are patent. Proximal femoral vessels are patent. 3. 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 Distal tributaries are patent. Superior mesenteric artery patent. Inferior mesenteric artery patent. 4. Renal arteries: Single renal arteries bilaterally. Redemonstrated right distal renal artery partially calcified aneurysm measuring 9 mm and transverse dimension and 8 mm in craniocaudal dimension. NONVASCULAR: Lung Bases: The visualized lung bases are clear. Liver: Small subcentimeter segment 3 cyst stable. Remainder of the liver is homogeneous in attenuation. Gallbladder: Noninflamed. Biliary System: No intrahepatic or extrahepatic biliary dilation. Pancreas: Homogeneous in attenuation. Spleen: Normal in size. Genitourinary: Bilateral kidneys demonstrate symmetric enhancement. Exophytic left interpole simple renal cyst measuring 1.3 cm; no follow-up needed. No perinephric fluid collection. No renal calculi. No hydroureteronephrosis. Adrenal Glands: Unremarkable. Reproductive: Uterus and and bilateral adnexa are unremarkable. Gastrointestinal: The visualized alimentary tract is normal in course. No evidence of obstruction. Appendix: The appendix is seen in its entirety and is unremarkable. Peritoneum: No pneumoperitoneum. No intra-abdominal fluid collection. Lymph Nodes: No pathologically enlarged abdominal or pelvic lymph nodes. Soft Tissues/Musculoskeletal: Superior endplate T11 Schmorl's node. No acute fracture or focal osseous lesions. 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 True renal aneurysms less than 3 cm are not treated unless the patient has hypertension, deteriorating renal function, hematuria, or flank pain. Recommend follow-up in 2 years. If found to be stable on 2 consecutive studies, no additional follow-up is needed as long as patient does not have any symptoms. The Society for vascular surgery clinical practice guidelines on the management of visceral aneurysms Juan David. Christiano Hoffmanularirma et al;J Vasc Surg 2020; 72: 3S?39. Fleischner guidelines were followed.
[2023-05-31 10:50] LABS: Blood Urea Nitrogen 10 mg/dL (9-16); Estimated Glomerular Filt Rate > 60
[2023-05-31] MEDS: iohexoL 350 MG/ML 100 ML INFUS..BTL IV (11:49)
== END 2023-05-31 10:10 | disposition home or self-care (01) ==
LOC: HO.CT 10:09
PROVIDERS: PCP Internal Medicine; Visit Provider Surgery Vascular Surgery
DX: I72.2 Aneurysm of renal artery (principal)
CPT/HCPCS: 36415; 74174; 82565; 84520; Q9967

== ENCOUNTER 2023-07-24 09:09 | Outpatient (AMB) | payer OTHER, SELFPAY ==
--- NOTE | 2023-07-24 09:13 | A.OFFVIS_ITS ---
Intake Vital Signs 07/24/23 09:16 Height 5 ft 5 in Weight 163 lb BMI 27.1 Intake Visit Reasons: 1 yr follow up CTA Abd/pelvis 05/31/2023 Intake Note: 1 yr follow up CTA Abd/pelvis 05/31/23 for renal artery aneurysm 05/31/23. Pt was referred a year ago for right flank pain and nausea. Pt states she no longer has pain or nausea. Accompanied by: Spouse Allergies amoxicillin Allergy (Severe, Verified 07/24/23 09:20) diarrhea Sulfa (Sulfonamide Antibiotics) Allergy (Severe, Verified 07/24/23 09:20) hives HPI 1 yr follow up CTA Abd/pelvis 05/31/2023 HPI Details Very pleasant 62-year-old female presents for follow-up regarding renal artery aneurysm. This was an incidental finding that was arisen worked up for right flank pain. It was unclear etiology and she seems to be doing relatively well from that. She now presents to us for vascular follow-up. She has had no other interval issues [facility] Medical History Tobacco dependence Annual physical exam Microhematuria Hyperlipidemia Hypothyroidism Surgical History Hx of cystoscopy Hx of tubal ligation H/O colonoscopy Family History Father Dementia Mother Myocardial infarction Social History Housing: House Alcohol intake: current Alcohol intake frequency: holidays/special occasions only Patient Tobacco Use Status: Current everyday Tobacco user Tobacco use type: Cigarette Cigarettes Per Day: 7 Years Smoked: 44 e-Cigarette/Vaping Use: Never Used Current occupational status: unemployed Cognitive needs: No Hearing needs: No Vision needs: Yes Review of Systems Const All systems reviewed & are unremarkable except as noted in HPI and below Reports no additional complaints ENT Reports Normal hearing present Card Denies chest pain, Denies chest pain at rest, Denies chest pain with activity and Denies pedal edema Resp Denies cough GI Denies abdominal pain Musc Denies abnormal gait, Denies muscle cramps and Denies radiating pain into limb Skin/Breast Denies skin ulcer and Denies wounds Neuro Reports Normal hearing present and Denies abnormal gait Psych Reports no additional complaints Physical Exam Vital Signs: BMI result Body Mass Index 27.1 Const General: cooperative, healthy appearing and comfortable Orientation/consciousness: oriented to person, oriented to place and oriented to time HEENT Head: Yes normal to inspection Neck Neck: Yes normal visual inspection Carotids: no bruits Chest Chest palpation & inspection: normal inspection of the chest Resp Effort & Inspection: normal respiratory effort and able to speak in complete s entences Auscultation: clear to auscultation bilaterally, no crackles, no rales, no rhonchi and no wheezes Cardio Rate: regular rate Rhythm: regular rhythm Heart sounds: S1 normal heart sound present and S2 normal heart sound present Bruits: no carotid bruits Peripheral pulses: Peripheral pulses 2+ throughout GI Inspection: Yes normal to inspection Skin Wounds: no wounds Hair: normal Neuro General: oriented to person, oriented to place and oriented to time Cranial nerves: Yes CN's II-XII intact bilaterally and Yes Normal hearing present Cognition (Neuro): normal cognition Motor exam (neuro): 5/5 motor strength present throughout Extrem Other: venous exam: No significant superficial varicosities or spider telangiectas ias, minimal edema General: No clubbing, No cyanosis and No edema Psych Appearance: grossly normal Mental Status: mental status grossly normal Speech and movement: Normal speech and movement present Results Reviewed Results Reviewed: CT angiogram dated 05/31/2023 and was compared to CT angiogram 04/06/2022. Renal artery aneurysm of 9 mm. Well-circumscribed. No intervention required. Assessment & Plan Assessment & Plan (1) Renal artery aneurysm: Code(s): I72.2 - Aneurysm of renal artery Plan: In short renal artery aneurysm appears to be doing relatively well on CT scan from 05/31/2023. No follow-up required. I do not think that this will change as it has not expanded and it appears well-circumscribed. I would recommend repeat CT scan in approximately 3-5 years. She will follow up with us on an as-needed basis. Thank you for allowing us to assist in her care. Coding Level of Care Code Est Pt Level 4 (17612) Diagnoses Renal artery aneurysm I72.2
[2023-07-24 09:16] VITALS: BMI 27.1
== END 2023-07-24 09:39 | disposition home or self-care (01) ==
PROVIDERS: PCP Internal Medicine; Visit Provider Surgery Vascular Surgery
DX: I72.2 Aneurysm of renal artery (principal)
CPT/HCPCS: 99213

== ENCOUNTER → 2023-07-24 09:09 | Outpatient (BNVA) | payer OTHER, SELFPAY | PROVIDERS: PCP Internal Medicine; Visit Provider Surgery Vascular Surgery | DX: I72.2 Aneurysm of renal artery (principal) | CPT/HCPCS: 99212 ==

== ENCOUNTER 2023-12-25 07:35 | Outpatient (AMB) | payer OTHER, SELFPAY ==
[2023-12-25 07:39] VITALS: BP 122/78; BMI 28.0
--- NOTE | 2023-12-25 07:39 | A.OFFPC_ITS ---
Vital Signs 12/25/23 07:39 Height 5 ft 5 in Weight 168 lb BMI 28.0 BP 122/78 Blood Pressure Location Lt brachial Position Sitting Intake Visit Reasons: Annual PE+ NEEDS PHQ-9 Intake Note: Pt is here today for PE. Allergies amoxicillin Allergy (Severe, Verified 12/25/23 07:41) diarrhea Sulfa (Sulfonamide Antibiotics) Allergy (Severe, Verified 12/25/23 07:41) hives Medication List - Last Reconciled 12/25/23 by Val Brothers MD levothyroxine 137 mcg PO QAM simvastatin 40 mg PO DAILY Tobacco use date assessed: 12/25/23 Dental Screening Dental Screen Date: 12/25/23 Did you have a dental visit in the last 12 months?: No Did you have a dental problem in the last 6 months where you did not have access to dental care?: No Was dental information given to patient?: Patient declined HPI Annual PE+ NEEDS PHQ-9 HPI Details Pt presents for PE. PFSH Medical History Tobacco dependence Annual physical exam Microhematuria Hyperlipidemia Hypothyroidism Surgical History Hx of cystoscopy Hx of tubal ligation H/O colonoscopy Family History Father Dementia Mother Myocardial infarction Social History Housing: House Alcohol intake: current Alcohol intake frequency: holidays/special occasions only Patient Tobacco Use Status: Current everyday Tobacco user Tobacco use type: Cigarette Cigarettes Per Day: 7 Years Smoked: 44 e-Cigarette/Vaping Use: Never Used service: No Current occupational status: unemployed Cognitive needs: No Hearing needs: No Vision needs: Yes Questionnaire PHQ-9 Over the last 2 weeks, how often have you been bothered by any of the following problems? 1. Little interest or pleasure in doing things: several days 2. Feeling down, depressed, or hopeless: not at all 3. Trouble falling or staying asleep, or sleeping too much: several days 4. Feeling tired or having little energy: several days 5. Poor appetite or overeating: not at all 6. Feeling bad about yourself - or that you are a failure or have let yourself or your family down: not at all 7. Trouble concentrating on things, such as reading the newspaper or watching television: not at all 8. Moving or speaking so slowly that other people could have noticed. Or the opposite - being so fidgety or restless that you have been moving around a lot more than usual: not at all 9. Thoughts that you would be better off or of hurting yourself in some way: not at all Total score: 3 Depression Screening Interpretation: Negative Depression Screening Done: Yes 86830 - PHQ-9 Billing: Yes Source: Developed by Drs. Jose Choi, Portia Neff, Ray Pulido and colleagues, with an educational kamari from [employer]. Thrive Questionnaire Date Thrive assessed: 12/25/23 I am a: Patient What is your living situation today?: I have a steady place to live Within the past 12 months, did the food you bought not last and you didn't have the money to get more?: I choose not to answer this question Within the past 12 months, did you worry whether your food would run out before you got money to buy more?: I choose not to answer this question Do you have trouble paying for medicines?: I choose not to answer this question Do you have trouble getting transportation to medical appointments?: I choose not to answer this question Do you have trouble paying your heating and electricity bill?: I choose not to answer this question Do you have trouble taking care of your child, family member or friend?: I choose not to answer this question Do you have trouble with day-to-day activities such as bathing, preparing meals, shopping, managing finances, etc.?: I choose not to answer this question Are you currently unemployed and looking for a job?: I choose not to answer this question Are you interested in more education?: I choose not to answer this question Please select the resources that you would like help with: None Currently or been in a relationship where the following occur: I choose not to answer THRIVE Score: 0 AUDIT C Alcohol Use Questionnaire (AUDIT-C) 1. How often do you have a drink containing alcohol?: Never 3. How often do you have six or more drinks on one occasion?: Never Total Score: 0 ARIEL-7 AMB Questionnaire ARIEL-7 Date ARIEL - 7 assessed: 12/25/23 Feeling nervous, anxious, or on edge: 1 = Several days Not being able to stop or control worryin = Several days Worrying too much about different things: 1 = Several days Trouble relaxin = Several days Being so restless that it is hard to sit still: 0 = Not at all Becoming easily annoyed or irritable: 1 = Several days Feeling afraid as if something awful might happen: 1 = Several days Total ARIEL-7 score (0-4 normal; 5-9 mild; 10-14 moderate; 15-21 severe): 6 Source: Developed by Drs. Jose Choi, Portia Neff, Ray Pulido and colleagues, with an educational kamari from [employer]. ARIEL-7 Assessment Billing ARIEL-7 Assessment Tool: ARIEL-7 Assessment 35262 Review of Systems Const All systems reviewed & are unremarkable except as noted in HPI and below Reports no additional complaints Eyes Reports no additional complaints ENT Reports no additional complaints Card Reports no additional complaints Resp Reports no additional complaints GI Reports no additional complaints Physical exam (Primary Care) Vital Signs: Last Vital Signs BP 122/78 12/25/23 07:39 BMI result Body Mass Index 28.0 Tobacco/Smoking Status: Tobacco use Status Tobacco use date assessed 12/25/23 12/25/23 07:44 Patient Tobacco Use Status Current everyday Tobacco 12/25/23 07:44 Tobacco use type Cigarette 12/25/23 07:44 e-Cigarette/Vaping Use Never Used 12/25/23 07:44 PHQ-9: PHQ-9 Score PHQ-9: Total score 3 12/25/23 08:07 Depression Screening Interpretation: Negative Thrive Assessment: Date of Thrive Assessment Date Thrive assessed 12/25/23 12/25/23 07:44 Currently or been in a relationship where the following occur: I choose not to answer Const General: no acute distress HENMT Head: Yes normal to inspection Ears: hearing grossly normal bilaterally Face and sinus: Yes normal facial exam Mouth: Normal oral and palatal mucosa present Throat: Yes posterior oropharynx normal Eyes General: appearance normal, both eyes and all related structures Neck Neck: Yes no lymphadenopathy and Yes supple Resp Effort & Inspection: normal respiratory effort Auscultation: clear to auscultation bilaterally Cardio Rhythm: regular rhythm Heart sounds: S1 normal heart sound present and S2 normal heart sound present GI Inspection: Yes normal to inspection Palpation (GI): Soft to palpation Percussion: Yes normal to percussion Auscultation: normal bowel sounds Assessment and Plan Assessment & Plan (1) Hypothyroidism: Code(s): E03.9 - Hypothyroidism, unspecified Plan: Continue levothyroxine (2) Annual physical exam: Code(s): Z00.00 - Encounter for general adult medical examination without abnormal findings Plan: Well-balanced diet regular physical activity discussed with the patient. She is up-to-date with the mammogram colonoscopy Pap smear (3) Renal artery aneurysm: Comment: 05/2023 CT stable, f/u with Dr. Quiroz, repeat 5 yrs Code(s): I72.2 - Aneurysm of renal artery Plan: Follow-up with the vascular surgeon (4) Anxiety: Code(s): F41.9 - Anxiety disorder, unspecified Plan: Stress management regular exercise discussed with the patient (5) Vitamin D deficiency: Code(s): E55.9 - Vitamin D deficiency, unspecified Plan: Continue vitamin-D Orders: Orders Comprehensive [place]. Panel Fast 1 Year E03.9 - Hypothyroidism, unspecified, E55.9 - Vitamin D deficiency, unspecified, F41.9 - Anxiety disorder, unspecified, I72.2 - Aneurysm of renal artery, Z00.00 - Encounter for general adult medical examination without abnormal findings Complete Blood Count Auto Diff 1 Year E03.9 - Hypothyroidism, unspecified, E55.9 - Vitamin D deficiency, unspecified, F41.9 - Anxiety disorder, unspecified, I72.2 - Aneurysm of renal artery, Z00.00 - Encounter for general adult medical examination without abnormal findings Lipid Panel 1 Year E03.9 - Hypothyroidism, unspecified, E55.9 - Vitamin D deficiency, unspecified, F41.9 - Anxiety disorder, unspecified, I72.2 - Aneurysm of renal artery, Z00.00 - Encounter for general adult medical examination without abnormal findings TSH reflex Free T4 1 Year E03.9 - Hypothyroidism, unspecified, E55.9 - Vitamin D deficiency, unspecified, F41.9 - Anxiety disorder, unspecified, I72.2 - Aneurysm of renal artery, Z00.00 - Encounter for general adult medical examination without abnormal findings Vitamin D 25-OH Total 1 Year E03.9 - Hypothyroidism, unspecified, E55.9 - Vitamin D deficiency, unspecified, F41.9 - Anxiety disorder, unspecified, I72.2 - Aneurysm of renal artery, Z00.00 - Encounter for general adult medical examination without abnormal findings Medications: Refilled levothyroxine 137 mcg PO QAM 90 tabs 3RF simvastatin 40 mg PO DAILY 90 tabs 3RF E78.5 - Hyperlipidemia, unspecified Coding Level of Care Code Est Pt Prev Care 40-64y(51342) Diagnoses Hypothyroidism E03.9 Annual physical exam Z00.00 Renal artery aneurysm I72.2 Anxiety F41.9 Vitamin D deficiency E55.9 Additional Codes ARIEL-7 Assessment Billing - ARIEL-7 Assessment Tool: ARIEL-7 Assessment [id number] ([id number])
== END 2023-12-25 08:21 | disposition home or self-care (01) ==
PROVIDERS: PCP Internal Medicine; Visit Provider Internal Medicine
DX: Z00.00 Encounter for general adult medical examination without abnormal findings (principal); E03.9 Hypothyroidism, unspecified; I72.2 Aneurysm of renal artery; F41.9 Anxiety disorder, unspecified; E55.9 Vitamin D deficiency, unspecified
CPT/HCPCS: 99396

== ENCOUNTER 2023-12-26 06:46 | Outpatient (REF) | payer OTHER, SELFPAY ==
[2023-12-26 10:09] LABS: MANUAL DIFF FLAG NO
[2023-12-26 10:18] LABS: Basophils Absolute Auto 0.1 X10*3/uL (0.0-0.2); Basophils Percent Auto 0.8 % (0-2); Eosinophils Absolute Auto 0.2 X10*3/uL (0.0-0.4); Eosinophils Percent Auto 2.6 % (0-4); Hematocrit 40.7 % (37.0-47.0); Hemoglobin 13.7 g/dl (12.0-16.0); Imm Gran Abs Auto 0.03 X10*3/uL (0.00-0.03); Imm Gran Pct Auto 0.5 % (0.0-0.4); Lymphocytes Absolute Auto 1.9 X10*3/uL (1.2-4.9); Lymphocytes Percent Auto 31.6 % (20-40); Mean Corpuscular HGB Conc 33.7 g/dl (31.0-35.0); Mean Corpuscular Hemoglobin 32.9 pg (27.0-33.0); Mean Corpuscular Volume 97.6 fL (80.0-98.0); Mean Platelet Volume 10.5 fL (9.4-12.3); Monocytes Absolute Auto 0.5 X10*3/uL (0.1-1.2); Monocytes Percent Auto 8.4 % (2-11); Neutrophils Absolute Auto 3.4 x10*3/uL (2.0-8.3); Neutrophils Percent Auto 56.1 % (45-73); Platelet Count 299 X10*3/uL (160-400); Red Blood Count 4.17 X10*6/uL (4.20-5.50); Red Cell Distribution Width 12.9 % (11.0-16.0); White Blood Count 6.1 X10*3/uL (4.8-10.8)
[2023-12-26 10:48] LABS: Alanine Aminotransferase 19 U/L (0-31); Albumin Level 4.3 g/dL (3.5-5.0); Alkaline Phosphatase 61 U/L (39-117); Anion Gap 11 (12-20); Aspartate Amino Transferase 20 U/L (5-31); Bilirubin Total 0.3 mg/dL (0.0-1.0); Blood Urea Nitrogen 12 mg/dL (9-16); Calcium 9.6 mg/dL (8.4-10.2); Carbon Dioxide 30 mmol/L (22-29); Chloride 106 mmol/L (96-108); Cholesterol 164 mg/dL (<200); Estimated Glomerular Filt Rate > 60; Glucose Fasting 100 mg/dL (60-99); HDL Cholesterol 51 mg/dL (>40); LDL Cholesterol Calculated 94 mg/dL (<100); Potassium 3.9 mmol/L (3.3-5.1); Sodium 143 mmol/L (135-145); Triglycerides 97 mg/dL (<150)
[2023-12-26 10:52] LABS: TSH reflex Free T4 3.75 uIU/mL (0.32-4.0); Vitamin D 25-OH Total 45.1 ng/mL (>30)
== END 2023-12-26 06:47 | disposition home or self-care (01) ==
LOC: HO.HMGCLDS 06:46
PROVIDERS: PCP Internal Medicine; Visit Provider Internal Medicine
DX: Z00.00 Encounter for general adult medical examination without abnormal findings (principal); E78.5 Hyperlipidemia, unspecified; E03.9 Hypothyroidism, unspecified; E55.9 Vitamin D deficiency, unspecified
CPT/HCPCS: 36415; 80053; 80061; 82306; 84443; 85025

== ENCOUNTER 2024-12-15 14:30 | Outpatient (AMB) | payer OTHER, SELFPAY ==
--- NOTE | 2024-12-15 15:01 | AM.OFFWIN_ITS ---
Intake Vital Signs 12/15/24 15:02 Height 5 ft 5 in Weight 172 lb BMI 28.6 BP 132/66 Blood Pressure Location Rt brachial Position Sitting Pulse 100 Pulse Source Pulse Oximeter Temp 98.2 F Temp Source Oral Pulse Oximetry (%) 99 Oxygen Delivery Method Room Air Intake Visit Reasons: EP Gash on ring finger Patient Tobacco Use Status: Current everyday Tobacco user Allergies amoxicillin Allergy (Severe, Verified 12/15/24 15:05) diarrhea Sulfa (Sulfonamide Antibiotics) Allergy (Severe, Verified 12/15/24 15:05) hives Do you need a note to return to daycare/school/sports/work: No HPI HPI Comments History of Present Illness Details History of Present Illness - The patient is a 64-year-old female pr esenting with a 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 - The laceration occurred when the patie nt was washing dishes and got her finger stuck, resulting in a cut on stainless steel. - The patient attempted to wash the woun d with water, which caused pain. - The patient is not on any blood thinne rs and has no history of diabetes. - The patient last received a Tdap vacci nation in 2016 and was advised to get a booster due to the nature of the injury. Physical Exam General: Cooperative, healthy appearing, comfortable, no acute distress and well developed Orientation: Patient oriented x3 Limitations: No limitations Head: Normal to inspection Ears: Hearing grossly normal bilaterally Nose: Normal External nose present Face and sinus: Normal facial exam Eyes: Appearance normal, both eyes and all related structures Neck: Normal visual inspection and Yes full ROM Respiratory: Normal respiratory effort and able to speak in complete sentences. Skin: No rashes or lesions noted Neuro: Patient oriented x3 Extremities: Normal to inspection, except for curved laceration/flap with extreme edema on dorsal distal left 2nd digit, bleeding PFSH Medical History Tobacco dependence Annual physical exam Microhematuria Hyperlipidemia Hypothyroidism Surgical History Hx of cystoscopy Hx of tubal ligation H/O colonoscopy Family History Father Dementia Mother Myocardial infarction Social History Housing: House Alcohol intake: current Alcohol intake frequency: holidays/special occasions only Patient Tobacco Use Status: Current everyday Tobacco user Tobacco use type: Cigarette Cigarettes Per Day: 7 Years Smoked: 44 e-Cigarette/Vaping Use: Never Used service: No Current occupational status: unemployed Cognitive needs: No Hearing needs: No Vision needs: Yes Review of Systems Const All systems reviewed & are unremarkable except as noted in HPI and below Physical Exam Vital Signs: Last Vital Signs Temp 98.2 F 12/15/24 15:02 Pulse 100 12/15/24 15:02 BP 132/66 12/15/24 15:02 Pulse Ox 99 12/15/24 15:02 Oxygen Delivery Method Room Air 12/15/24 15:02 BMI result Body Mass Index 28.6 Office Procedures AMB Laceration Repair Details: repaired 1.25cm curved flap on palmar aspect of distal left 2nd digit. Laceration repair performed by: Malissa Tolentino Explained risks and benefits to parent: Yes Informed consent given: Yes Consent signed: No Location: left 2nd digit Length: 1.25c Sedation: No Anesthesia: 2% lidocaine Irrigation: saline Preparation: betadine Wound exploration: none Deep closure: No Skin closure: nylon Technique: 3 simple, interruped sutures with 3 steri-strips on top Topical treatment: dry Tetanus toxoid ordered: No (not available in the clinic, advised to go to pharmacy) Patient tolerated procedure: [place]: [place] [id number] Repair <2.5cm Procedure code (CPT) selection complete Office Meds lidocaine HCl 20 mg/mL (2 %) injection solution Performing Provider: Malissa Tolentino PA-C Performing Location: [facility] Administered by: Malissa Tolentino PA-C on 12/15/24 16:14 Dose Route Admin Location Dispensed Lot Number Expiration Date [facility] Fluid Pump Operator 3 mL Infiltration 3 mL [id number] 04/29/25 74978-057-46 [employer] Total Dispensed Waste 3 mL 0 % Assessment & Plan Assessment & Plan (1) Laceration of finger of left hand: Code(s): S61.219A - Laceration without foreign body of unspecified finger without damage to nail, initial encounter Qualifiers: Encounter type: initial encounter Finger: index finger Damage to nail status: without damage Foreign body presence: without foreign body Qualified Code(s): S61.211A - Laceration without foreign body of left index finger without damage to nail, initial encounter Plan: Plan - Advised to get tetanus prophylaxis due to the laceration sustained on metal. Our clinic does not currently have Tdap available but she can go to [facility] to get it done. - Irrigated, numbed and sutured the laceration on the finger with 3 sutures, ensuring proper approximation of the wound edges. - Advise the patient to keep the wound clean and dry, avoiding immersion in water. - Recommend follow-up for suture removal in 7 to 10 days. - Instruct the patient to monitor for signs of infection, such as redness, swelling, or fever, and return if these occur. Patient was informed and verbally consented to the use of an ambient scribe for clinic note documentation during this visit. Orders: Orders AMB Laceration Repair Today S61.219A - Laceration without foreign body of unspecified finger without damage to nail, initial encounter Coding Level of Care Code Est Pt Level 4 (88600) Diagnoses Laceration of left index finger without foreign body without damage to nail, initial encounter S61.211A Encounter type: initial encounter Finger: index finger Damage to nail status: without damage Foreign body presence: without foreign body CPT Codes Office Procedure - Laceration Repair 1: [id number] Repair <2.5cm ([id number])
[2024-12-15 15:02] VITALS: BP 132/66; PULSE 100; TEMP 36.8; O2SAT 99; BMI 28.6
--- OUTSIDE RECORDS SUMMARY | 2024-12-15 15:13 | XMS_ITS | Patient Health Record ---
Author Organization [facility] Address [address] [place] [address] Care Team Providers Care Fishing Worker Name Role Phone Val Brothesr MD Primary Care Provider Todd Briseno Jr Unavailable [phone] Allergies Allergen (clinical drug ingredient) Drug/Non Drug Allergy documented on EMR Reaction Allergy Type Onset Date Status sulfacetamide Sulfacetamide Sodium Unknown Drug Allergy Active amoxicillin Amoxicillin Unknown Drug Allergy Act maxime Reason For Referral No Information Medications Medication SIG (Take, Route, Frequency, Duration) Notes Start Date End Date Status MiraLax (colon prep) 8.3 ounce ((238) grams mixed with Gatorade or Crystal Light orally begin at 5:00 p.m. the day before the procedure for 1 day 02/20/2019 Active Levothyroxine Sodium 137 MCG TAKE 1 TABL ET BY MOUTH ONCE DAILY ON AN EMPTY STOMACH IN THE MORNING FOR 90 DAYS Oral for 30 Active Simvastatin 40 MG TAKE 1 TABLET BY AMANDA TH ONCE DAILY FOR 90 DAYS Oral for 30 Active Immunizations Vaccine Route Administration Date Status Comme nts Influenza Unknown 02/20/2019 Refused Social History Tobacco Use: Social History Observation Description Date Details (start date - stop date) Current Smoker NA - NA Tobacco Use/Smoking Question Answer Notes Patient is a current smoker How often do you smoke cigarettes? every day How many cigarettes a day do you smoke? 11-20 Alcohol Screen Question Answer Notes Did you have a drink containing alcohol in the p ast year? No Points 0 Interpretation Negative Problems Problem Type SNOMED Code ICD Code Onset Dates Problem Status W/U Status Risk Notes Problem [id number] Colon cancer screening (Z12.11) Active confirmed Problem [id number] Right sided abdominal pain (R10.9) Active confirmed Plan Of Treatment Future Test Test Name Order Date COLONOSCOPY 02/20/2019 Insurance Providers Payer Name Payer Address Payer Phone Subscriber Number Group Number Insured Name Patient Relationship to Insured Coverage Start Date Coverage End Date [facility] [address] [address] [place] [address] [id number] TONY PARRA Self - patient is the insured Medical (General) History Medical History History ICD Code hyperlipidemia thyroid disease Surgical History Surgery Date(Month/Year) tubal ligation
--- OUTSIDE RECORDS SUMMARY | 2024-12-15 15:13 | XMS_ITS | Clinical Summary ---
Author Organization [facility] [address] [place] [address] [address] [place] [address] Phone Care Team Providers Care Laundry Sorter Name Role Phone Val Brothers MD Primary Care Provider [phone] Surgical History Surgery Date Site/Laterality Comments TUBAL LIGATION PROCEDURE: HISTORICAL TUBAL LIGATION OTHER SURGICAL HISTORY 07/10 PROCEDURE: OUTSIDE MAMMO Medical History Medical History Date Comments Hyperlipidemia 06/06/2014 DX:Hyperlipidemi a Family History Medical History Relation Name Comments Breast cancer Neg Hx Relation Name Status Comments Father Alive valve replaced Mother at 71 of M I, Social History Tobacco Use Types Packs/Day Years Used Date Smoking Tobacco: Every Day Cigarettes Smokeless Tobacco: Never Alcohol Use Standard Drinks/Week Comments Yes 0 (1 standard drink = 0.6 oz pur e alcohol) Comments No Sex and Gender Information Value Date Recorded Sex Assigned at Not on file Legal Sex Female 3:43 PM EST Gender Identity Not on file Sexual Orientation Not on file Obstetrics History Para Term AB IAB SAB Ectopic Multiple Livin g Live Births 1 1 1 1 Date Outcome GA Total Labor Labor/2nd/3rd Weight Sex Type Anes PTL Scarlett A1 A5 Name Clin Term Last Filed Vital Signs Vital Sign Reading Time Taken Comments Blood Pressure - - Pulse - - Temperature - - Respiratory Rate - - Oxygen Saturation - - Inhaled Oxygen Concentration - - Weight 76.2 kg (168 lb) 04/12/2024 10:59 AM EST Height 165.1 cm (5' 5 ) 04/12/2024 10:59 AM EST Body Mass Index 27.96 04/12/2024 10:59 AM EST Plan of Treatment Health Maintenance Due Date Last Done Comments Pneumococcal Vaccine: 50+ Years (1 of 2 - PCV) 1980 Cervical Cancer Screening: HPV 1982 Zoster Vaccines (1 of 2) 10/12/2011 Cholesterol Screening (Lipid Panel) 04/08/2022 Colorectal Cancer Screening: Stool Based Tests (FOBT/FIT) 04/08/2022 HIV Screening 04/08/2022 Hepatitis C Screening 04/08/2022 Social Influencers of Health Screening 04/08/2022 COVID-19 Vaccine (1 - season) 2023 Depression Screening 04/30/2024 Influenza Vaccine (#1) 2024 DTaP,Tdap,and Td Vaccines (2 - Td or Tdap) 05/20/2025 05/20/2015 Breast Cancer Screening 04/12/2026 04/12/20 24, 03/10/2023, 03/04/2022, Additional history exists RSV Immunization Adult Patients (1 - 1-dose 75+ series) 2036 HIB Vaccines Aged Out No longer eligi ble based on patient's age to complete this topic HPV Vaccines Aged Out No longer eligi ble based on patient's age to complete this topic Hepatitis A Vaccines Aged Out No long er eligible based on patient's age to complete this topic Hepatitis B Vaccines Aged Out No long er eligible based on patient's age to complete this topic IPV Vaccines Aged Out No longer eligi ble based on patient's age to complete this topic MMR Vaccines Aged Out No longer eligi ble based on patient's age to complete this topic Meningococcal ACWY Vaccine Aged Out N o longer eligible based on patient's age to complete this topic Meningococcal B Vaccine Aged Out No l onger eligible based on patient's age to complete this topic RSV Immunization Patients Under 20 months Aged Out No longer eligible based on patient's age to complete this topic Varicella Vaccines Aged Out No longer eligible based on patient's age to complete this topic Procedures Procedure Name Priority Date/Time Associated Diagnosis Comments MG MAMMO DIGITAL SCREENING W BASSEM BILAT Routine 04/12/2024 11:06 AM EST Encounter for screening mammogram for breast cancer from Last 3 Months or Most Recently Relevant to Health Maintenance Results * MG Mammo Digital Screening w Bassem bilat (04/12/2024 11:06 AM EST) Anatomical Region Laterality Modality Breast Bilateral Mammography 04/12/2024 3:45 PM EST Impressions 04/12/2024 3:47 PM EST No mammographic evidence for malignancy. BI-RADS CATEGORY: 1 - NEGATIVE RECOMMENDATION: Screening bilateral mammogram is recommended in 1 year. Screening bilateral mammogram is recommended in 1 year. -------- FINAL REPORT -------- Dictated By: Karlie Mancini Dictated Date: 04/12/2024 15:45 ET Assigned Physician: Karlie Mancini Reviewed and Electronically Signed By: Karlie Mancini Signed Date: 04/12/2024 15:47 ET Workstation ID: [id number] Transcribed By: Self Edit Transcribed Date: 04/12/2024 15:45 ET Narrative 04/12/2024 3:47 PM EST EXAMINATION TYPE: MG MAMMO DIGITAL SCREENING W BASSEM BILAT DATE OF EXAM ORDERED: 04/12/2024 10:57 AM COMPARISON: Comparison is prior studies, latest from 03/10/2023. REASON FOR STUDY: Breast cancer screen, avg risk, asymptomatic (Age => 40y) TECHNIQUE: Bilateral mediolateral oblique and craniocaudal views were obtained digitally with 3-D mammogram (digital breast tomosynthesis) with CAD. Computer-aided detection was utilized in evaluation of this examination ([employer]; iCAD). FINDINGS: The breast tissue distribution pattern is unchanged. There is no suspicious mass, suspicious calcifications or suspicious architectural distortion. BREAST DENSITY: B - There are scattered areas of fibroglandular density. Procedure Note Karlie Mancini MD - 04/12/2024 EXAMINATION TYPE: MG MAMMO DIGITAL SCREENING W BASSEM BILAT DATE OF EXAM ORDERED: 04/12/2024 10:57 AM COMPARISON: Comparison is prior studies, latest from 03/10/2023. REASON FOR STUDY: Breast cancer screen, avg risk, asymptomatic (Age =>40y) TECHNIQUE: Bilateral mediolateral oblique and craniocaudal views wereobtained digitally with 3-D mammogram (digital breast tomosynthesis) withCAD. Computer- aided detection was utilized in evaluation of thisexamination ([employer]; iCAD). FINDINGS: The breast tissue distribution pattern is unchanged. There is nosuspicious mass, suspicious calcifications or suspicious architecturaldistortion. BREAST DENSITY: B - There are scattered areas of fibroglandular density. IMPRESSION: No mammographic evidence for malignancy. BI-RADS CATEGORY: 1 - NEGATIVE RECOMMENDATION: Screening bilateral mammogram is recommended in 1 year. Screeningbilateral mammogram is recommended in 1 year. -------- FINAL REPORT -------- Dictated By: Karlie Mancini Dictated Date: 04/12/2024 15:45 ET Assigned Physician: Karlie Mancini Reviewed and Electronically Signed By: Karlie Mancini Signed Date: 04/12/2024 15:47 ET Workstation ID: [id number] Transcribed By: Self Edit Transcribed Date: 04/12/2024 15:45 ET us Val Brothers MD IMG BI PROCEDURES Final Resul t from Last 3 Months or Most Recently Relevant to Health Maintenance Insurance [facility] [employer] Care Teams Laundry Sorter Relationship Specialty Start Date End Date Val Brothers MD PCP - General Internal Medicine 05/01/18
== END 2024-12-15 16:06 | disposition home or self-care (01) ==
PROVIDERS: PCP Internal Medicine; Visit Provider Physician Assistant
DX: S61.211A Laceration without foreign body of left index finger without damage to nail, initial encounter (principal)

== ENCOUNTER → 2024-12-15 14:30 | Outpatient (BNVA) | payer OTHER, SELFPAY | PROVIDERS: PCP Internal Medicine; Visit Provider Physician Assistant | DX: S61.211A Laceration without foreign body of left index finger without damage to nail, initial encounter (principal); W26.8XXA Contact with other sharp object(s), not elsewhere classified, initial encounter; Y93.89 Activity, other specified; Y92.9 Unspecified place or not applicable; Y99.9 Unspecified external cause status | CPT/HCPCS: 12001; 99212; J2003 ==

== ENCOUNTER 2024-12-25 08:24 | Outpatient (AMB) | payer OTHER, SELFPAY ==
[2024-12-25 08:33] VITALS: BP 132/68; PULSE 75; TEMP 36.7; O2SAT 97; BMI 28.1
--- NOTE | 2024-12-25 08:33 | AM.OFFWIN_ITS ---
Intake Vital Signs 12/25/24 08:33 Height 5 ft 5 in Weight 169 lb BMI 28.1 BP 132/68 Blood Pressure Location Rt brachial Position Sitting Pulse 75 Pulse Source Pulse Oximeter Temp 98.1 F Temp Source Oral Pulse Oximetry (%) 97 Oxygen Delivery Method Room Air Intake Visit Reasons: EP-lt hand finger stitches remova Patient Tobacco Use Status: Current everyday Tobacco user Allergies amoxicillin Allergy (Severe, Verified 12/25/24 08:36) diarrhea Sulfa (Sulfonamide Antibiotics) Allergy (Severe, Verified 12/25/24 08:36) hives Do you need a note to return to daycare/school/sports/work: No HPI HPI Comments History of Present Illness Details History of Present Illness - The patient is a 64-year-old female pr esenting for a suture removal. - She has a finger laceration with stitc hes. - She was seen here on 12/15. - The injury was caused by the finger be ing pinched between a ag and the sink edge, necessitating stitches. - The patient experiences numbness and s ensitivity at the fingertip due to nerve endings. - She denies fever, chills, redness, war mth, or streaking. - She has some numbness or tingling. Physical Exam General: Cooperative, healthy appearing, comfortable, no acute distress and well developed Orientation: Patient oriented x3 Respiratory: Normal respiratory effort and able to speak in complete sentences. Clear to auscultation bilaterally Cardiovascular: Regular rate and rhythm. Normal S1 and S2 Skin: [place], laceration with #3 sutures are intact on the left 4th distal digit. No bleeding or erythema noted. No rashes or lesions noted Neuro: Sensation intact. Extremities: Normal to inspection. FROM of the left digit at the DIP, PIP, and MCP joints. Procedure- - Finger cleaned with normal saline. #3 sutures were removed from the finger. Cleaned wound and then placed steri strips. Dry sterile dressing was applied. Procedure was well tolerated. Patient was informed and verbally consented to the use of an ambient scribe for clinic note documentation during this visit. [facility] Medical History Tobacco dependence Annual physical exam Microhematuria Hyperlipidemia Hypothyroidism Surgical History Hx of cystoscopy Hx of tubal ligation H/O colonoscopy Family History Father Dementia Mother Myocardial infarction Social History Housing: House Alcohol intake: current Alcohol intake frequency: holidays/special occasions only Patient Tobacco Use Status: Current everyday Tobacco user Tobacco use type: Cigarette Cigarettes Per Day: 7 Years Smoked: 44 e-Cigarette/Vaping Use: Never Used service: No Current occupational status: unemployed Cognitive needs: No Hearing needs: No Vision needs: Yes Review of Systems Const All systems reviewed & are unremarkable except as noted in HPI and below Physical Exam Vital Signs: Last Vital Signs Temp 98.1 F 12/25/24 08:33 Pulse 75 12/25/24 08:33 BP 132/68 12/25/24 08:33 Pulse Ox 97 12/25/24 08:33 Oxygen Delivery Method Room Air 12/25/24 08:33 BMI result Body Mass Index 28.1 Assessment & Plan Assessment & Plan (1) Visit for suture removal: Code(s): Z48.02 - Encounter for removal of sutures Plan Most likely healing laceration Plan - Steri-strips were applied to support the wound and prevent reopening. - Patient was advised to keep the area covered to avoid bumping and reopening the wound. - Follow-up care was suggested to monitor healing and remove stitches when appropriate. Coding Level of Care Code Est Pt Level 3 (77608) Diagnoses Visit for suture removal Z48.02
--- OUTSIDE RECORDS SUMMARY | 2024-12-25 09:01 | XMS_ITS | Patient Health Record ---
Author Organization [facility] Address [address] [place] [address] Care Team Providers Care Belting And Webbing Inspector Name Role Phone Val Brothers MD Primary Care Provider Todd Briseno Jr Unavailable [phone] Allergies Allergen (clinical drug ingredient) Drug/Non Drug [...] Problem Status W/U Status Risk Notes Problem [id number] Colon cancer screening (Z12.11) Active confirmed Problem [id number] Right sided abdominal pain (R10.9) Active confirmed Plan Of Treatment Future Test Test Name Order Date COLONOSCOPY 02/20/2019 Insurance Providers Payer Name Payer Address Payer Phone Subscriber Number Group Number Insured Name Patient Relationship to Insured Coverage Start Date Coverage End Date [facility] [address] [address] [place] [address] [id number] TONY PARRA Self - patient is the insured Medical (General) History Medical History History ICD Code hyperlipidemia thyroid disease Surgical History Surgery Date(Month/Year) tubal ligation
--- OUTSIDE RECORDS SUMMARY | 2024-12-25 09:01 | XMS_ITS | Clinical Summary ---
Author Organization [facility] [address] [place] [address] Address [address] [place] [address] Phone Care Team Providers Care Plunger Shovel Operator Name Role Phone Val Brothers MD Primary Care Provider [phone] Surgical History Surgery Date Site/Laterality Comments TUBAL [...] Signed Date: 04/12/2024 15:47 ET Workstation ID: [id number] Transcribed By: Self Edit Transcribed Date: 04/12/2024 [...] was utilized in evaluation of this examination ([employer]; iCAD). FINDINGS: The breast tissue distribution pattern [...] Signed Date: 04/12/2024 15:47 ET Workstation ID: [id number] Transcribed By: Self Edit Transcribed Date: 04/12/2024 15:45 ET us Val Brothers MD IMG BI PROCEDURES Final Resul t from Last 3 Months or Most Recently Relevant to Health Maintenance Insurance [facility] [facility] Care Teams Plunger Shovel Operator Relationship Specialty Start Date End Date Val Brothers MD PCP - General Internal Medicine 05/01/18
== END 2024-12-25 09:25 | disposition home or self-care (01) ==
PROVIDERS: PCP Internal Medicine; Visit Provider Physician Assistant Medical
DX: Z48.02 Encounter for removal of sutures (principal)

== ENCOUNTER → 2024-12-25 08:24 | Outpatient (BNVA) | payer OTHER, SELFPAY | PROVIDERS: PCP Internal Medicine; Visit Provider Physician Assistant Medical | DX: S61.215D Laceration without foreign body of left ring finger without damage to nail, subsequent encounter (principal); W23.0XXD Caught, crushed, jammed, or pinched between moving objects, subsequent encounter; Z48.02 Encounter for removal of sutures | CPT/HCPCS: 99212 ==

== ENCOUNTER 2025-01-03 07:04 | Outpatient (REF) | payer OTHER, SELFPAY ==
--- OUTSIDE RECORDS SUMMARY | 2025-01-03 07:07 | XMS_ITS | Patient Health Record ---
Author Organization [facility] Address [address] [place] [address] Care Team Providers Care Teacher Industrial Arts Name Role Phone Val Brothers MD Primary Care Provider Todd Briseno Jr Unavailable Allergies Allergen (clinical drug ingredient) Drug/Non Drug [...] Problem Status W/U Status Risk Notes Problem [id number] Colon cancer screening (Z12.11) Active confirmed Problem [id number] Right sided abdominal pain (R10.9) Active confirmed Plan Of Treatment Future Test Test Name Order Date COLONOSCOPY 02/20/2019 Insurance Providers Payer Name Payer Address Payer Phone Subscriber Number Group Number Insured Name Patient Relationship to Insured Coverage Start Date Coverage End Date [facility] [address] [address] [place] [address] [id number] TONY PARRA Self - patient is the insured Medical (General) History Medical History History ICD Code hyperlipidemia thyroid disease Surgical History Surgery Date(Month/Year) tubal ligation
--- OUTSIDE RECORDS SUMMARY | 2025-01-03 07:07 | XMS_ITS | Clinical Summary ---
Author Organization [facility] [address] [place] [address] [address] [place] [address] Phone Care Team Providers Care Furnace Checker Name Role Phone Val Brothers MD Primary Care Provider [phone] Surgical History Surgery Date Site/Laterality Comments TUBAL [...] 04/08/2022 Social Influencers of Health Screening 04/08/2022 Depression Screening 04/30/2024 COVID-19 Vaccine (1 - season) 2024 Influenza Vaccine (#1) 2024 DTaP,Tdap,and Td Vaccines [...] Signed Date: 04/12/2024 15:47 ET Workstation ID: [id number] Transcribed By: Self Edit Transcribed Date: 04/12/2024 [...] was utilized in evaluation of this examination ([employer]; iCAD). FINDINGS: The breast tissue distribution pattern [...] Dictated Date: 04/12/2024 15:45 ET Assigned Physician: Kralie Mancini Reviewed and Electronically Signed By: Karlie Mancini Signed Date: 04/12/2024 15:47 ET Workstation ID: [id number] Transcribed By: Self Edit Transcribed Date: 04/12/2024 15:45 ET us Val Brothers MD IMG BI PROCEDURES Final Resul t from Last 3 Months or Most Recently Relevant to Health Maintenance Insurance [facility] [employer] Care Teams Furnace Checker Relationship Specialty Start Date End Date Val Brothers MD PCP - General Internal Medicine 05/01/18
[2025-01-03 11:09] LABS: MANUAL DIFF FLAG NO
[2025-01-03 11:10] LABS: Hematocrit 40.1 % (37.0-47.0); Hemoglobin 13.3 g/dl (12.0-16.0); Imm Gran Abs Auto 0.03 X10*3/uL (0.00-0.03); Imm Gran Pct Auto 0.5 % (0.0-0.4); Lymphocytes Absolute Auto 1.4 X10*3/uL (1.2-4.9); Mean Corpuscular HGB Conc 33.2 g/dl (31.0-35.0); Mean Corpuscular Hemoglobin 31.7 pg (27.0-33.0); Mean Corpuscular Volume 95.7 fL (80.0-98.0); NRBC Abs Auto 0.000 X10*3/uL (0.0-0.012); NRBC Pct Auto 0.0 /100WBC (0.0-0.2); Platelet Count 229 X10*3/uL (160-400); Red Blood Count 4.19 X10*6/uL (4.20-5.50); White Blood Count 6.0 X10*3/uL (4.8-10.8)
[2025-01-03 11:41] LABS: Alanine Aminotransferase 20 U/L (0-31); Albumin Level 4.2 g/dL (3.5-5.0); Alkaline Phosphatase 54 U/L (39-117); Anion Gap 12 (12-20); Aspartate Amino Transferase 26 U/L (5-31); Blood Urea Nitrogen 9 mg/dL (9-16); Calcium 8.9 mg/dL (8.4-10.2); Carbon Dioxide 28 mmol/L (22-29); Chloride 107 mmol/L (96-108); Cholesterol 155 mg/dL (<200); Estimated Glomerular Filt Rate > 60; HDL Cholesterol 48 mg/dL (>40); Potassium 4.0 mmol/L (3.3-5.1); Sodium 143 mmol/L (135-145); Total Protein 6.6 g/dL (6.5-8.0); Triglycerides 127 mg/dL (<150)
== END 2025-01-03 07:05 | disposition home or self-care (01) ==
LOC: HO.HMGCLDS 07:04
PROVIDERS: PCP Internal Medicine; Visit Provider Internal Medicine
DX: Z00.00 Encounter for general adult medical examination without abnormal findings (principal); I72.2 Aneurysm of renal artery; E55.9 Vitamin D deficiency, unspecified; F41.9 Anxiety disorder, unspecified; E03.9 Hypothyroidism, unspecified
CPT/HCPCS: 36415; 80053; 80061; 82306; 84443; 85025

== ENCOUNTER 2025-01-08 08:22 | Outpatient (AMB) | payer OTHER, SELFPAY ==
[2025-01-08 08:32] VITALS: BP 126/80; PULSE 94; RESP 20; TEMP 36.9; O2SAT 98; BMI 28.3
--- NOTE | 2025-01-08 08:32 | A.OFFPC_ITS ---
Vital Signs 01/08/25 08:32 Height 5 ft 5 in Weight 170 lb BMI 28.3 BP 126/80 Blood Pressure Location Lt brachial Position Sitting Respiration 20 Pulse 94 Pulse Source Pulse Oximeter Temp 98.4 F Temp Source Oral Pulse Oximetry (%) 98 Oxygen Delivery Method Room Air Intake Visit Reasons: Annual PE Intake Note: Pt is here today for PE. Allergies amoxicillin Allergy (Severe, Verified 01/08/25 08:33) diarrhea Sulfa (Sulfonamide Antibiotics) Allergy (Severe, Verified 01/08/25 08:33) hives Tobacco use date assessed: 01/08/25 Dental Screening Dental Screen Date: 01/08/25 Did you have a dental visit in the last 12 months?: No Did you have a dental problem in the last 6 months where you did not have access to dental care?: No Was dental information given to patient?: Patient declined HPI Annual PE HPI Details Pt presents for PE. PFSH Medical History Tobacco dependence Annual physical exam Microhematuria Hyperlipidemia Hypothyroidism Surgical History Hx of cystoscopy Hx of tubal ligation H/O colonoscopy Family History Father Dementia Mother Myocardial infarction Social History Housing: House Alcohol intake: current Alcohol intake frequency: holidays/special occasions only Patient Tobacco Use Status: Current everyday Tobacco user Tobacco use type: Cigarette Cigarettes Per Day: 7 Years Smoked: 44 e-Cigarette/Vaping Use: Never Used service: No Current occupational status: unemployed Cognitive needs: No Hearing needs: No Vision needs: Yes Questionnaire PHQ-9 Over the last 2 weeks, how often have you been bothered by any of the following problems? 1. Little interest or pleasure in doing things: not at all 2. Feeling down, depressed, or hopeless: not at all 3. Trouble falling or staying asleep, or sleeping too much: not at all 4. Feeling tired or having little energy: not at all 5. Poor appetite or overeating: not at all 6. Feeling bad about yourself - or that you are a failure or have let yourself or your family down: not at all 7. Trouble concentrating on things, such as reading the newspaper or watching television: not at all 8. Moving or speaking so slowly that other people could have noticed. Or the opposite - being so fidgety or restless that you have been moving around a lot more than usual: not at all 9. Thoughts that you would be better off or of hurting yourself in some way: not at all Total score: 0 Depression Screening Interpretation: Negative Depression Screening Done: Yes 26174 - PHQ-9 Billing: Yes Source: Developed by Drs. Jose Choi, Portia Neff, Ray Pulido and colleagues, with an educational kamari from [employer]. Thrive Questionnaire Date Thrive assessed: 01/08/25 I am a: Patient What is your living situation today?: I have a steady place to live Within the past 12 months, did the food you bought not last and you didn't have the money to get more?: I choose not to answer this question Within the past 12 months, did you worry whether your food would run out before you got money to buy more?: I choose not to answer this question Do you have trouble paying for medicines?: I choose not to answer this question Do you have trouble getting transportation to medical appointments?: I choose not to answer this question Do you have trouble paying your heating and electricity bill?: I choose not to answer this question Do you have trouble taking care of your child, family member or friend?: I choose not to answer this question Do you have trouble with day-to-day activities such as bathing, preparing meals, shopping, managing finances, etc.?: I choose not to answer this question Are you currently unemployed and looking for a job?: I choose not to answer this question Are you interested in more education?: I choose not to answer this question Please select the resources that you would like help with: None Currently or been in a relationship where the following occur: I choose not to answer THRIVE Score: 0 AUDIT C Alcohol Use Questionnaire (AUDIT-C) 1. How often do you have a drink containing alcohol?: Monthly or less 2. How many drinks containing alcohol do you have on a typical day when you are drinking?: 1 or 2 3. How often do you have six or more drinks on one occasion?: Never Total Score: 1 ARIEL-7 AMB Questionnaire ARIEL-7 Date ARIEL - 7 assessed: 01/08/25 Feeling nervous, anxious, or on edge: 1 = Several days Not being able to stop or control worryin = Not at all Worrying too much about different things: 0 = Not at all Trouble relaxin = Not at all Being so restless that it is hard to sit still: 0 = Not at all Becoming easily annoyed or irritable: 0 = Not at all Feeling afraid as if something awful might happen: 0 = Not at all Total ARIEL-7 score (0-4 normal; 5-9 mild; 10-14 moderate; 15-21 severe): 1 Source: Developed by Drs. Jose Choi, Portia Neff, Ray Pulido and colleagues, with an educational kamari from [employer]. ARIEL-7 Assessment Billing ARIEL-7 Assessment Tool: ARIEL-7 Assessment 33996 Review of Systems Const All systems reviewed & are unremarkable except as noted in HPI and below Eyes Reports no additional complaints ENT Reports no additional complaints Card Reports no additional complaints Resp Reports no additional complaints GI Reports no additional complaints Reports no additional complaints Physical exam (Primary Care) Vital Signs: Last Vital Signs Temp 98.4 F 01/08/25 08:32 Pulse 94 01/08/25 08:32 Resp 20 01/08/25 08:32 BP 126/80 01/08/25 08:32 Pulse Ox 98 01/08/25 08:32 Oxygen Delivery Method Room Air 01/08/25 08:32 BMI result Body Mass Index 28.3 Tobacco/Smoking Status: Tobacco use Status Tobacco use date assessed 01/08/25 01/08/25 08:37 Patient Tobacco Use Status Current everyday Tobacco 01/08/25 08:37 Tobacco use type Cigarette 01/08/25 08:37 e-Cigarette/Vaping Use Never Used 01/08/25 08:37 PHQ-9: PHQ-9 Score PHQ-9: Total score 0 01/08/25 08:37 Depression Screening Interpretation: Negative Thrive Assessment: Date of Thrive Assessment Date Thrive assessed 01/08/25 01/08/25 08:37 Currently or been in a relationship where the following occur: I choose not to answer Const General: no acute distress HENMT Head: Yes normal to inspection Ears: hearing grossly normal bilaterally Face and sinus: Yes normal facial exam Mouth: Normal oral and palatal mucosa present Eyes General: appearance normal, both eyes and all related structures Neck Neck: Yes no lymphadenopathy and Yes supple Resp Effort & Inspection: normal respiratory effort Auscultation: clear to auscultation bilaterally Cardio Rhythm: regular rhythm Heart sounds: S1 normal heart sound present and S2 normal heart sound present GI Inspection: Yes normal to inspection Palpation (GI): Soft to palpation Percussion: Yes normal to percussion Auscultation: normal bowel sounds Coding Level of Care Code Est Pt Prev Care 40-64y(10202) Diagnoses 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 Quiroz, repeat 5 yrs Code(s): I72.2 - Aneurysm of renal artery Category: Medical Plan: f/u vascular surgery (2) Hypothyroidism: Code(s): E03.9 - Hypothyroidism, unspecified Category: Medical Plan: cont levothyroxine (3) Vitamin D deficiency: Code(s): E55.9 - Vitamin D deficiency, unspecified Category: Medical Plan: cont vit D (4) Annual physical exam: Code(s): Z00.00 - Encounter for general adult medical examination without abnormal findings Category: Medical Plan: well balanced diet, regular exercise, tobacco quitting discussed
--- OUTSIDE RECORDS SUMMARY | 2025-01-08 09:23 | XMS_ITS | Clinical Summary ---
Author Organization [facility] [address] [place] [address] [address] [place] [address] Phone Care Team Providers Care Polymerization Helper Name Role Phone Val Brothers MD Primary Care Provider [phone] Surgical History Surgery Date Site/Laterality Comments TUBAL [...] Signed Date: 04/12/2024 15:47 ET Workstation ID: [id number] Transcribed By: Self Edit Transcribed Date: 04/12/2024 [...] was utilized in evaluation of this examination ([place]; iCAD). FINDINGS: The breast tissue distribution pattern is unchanged. There is no suspicious mass, suspicious calcifications or suspicious architectural distortion. BREAST DENSITY: B - There are scattered areas of fibroglandular density. Procedure Note Karlie Mancnii MD - 04/12/2024 EXAMINATION TYPE: MG MAMMO [...] Signed Date: 04/12/2024 15:47 ET Workstation ID: [id number] Transcribed By: Self Edit Transcribed Date: 04/12/2024 15:45 ET us Val Brothers MD IMG BI PROCEDURES Final Resul t from Last 3 Months or Most Recently Relevant to Health Maintenance Insurance [facility] Care Teams Polymerization Helper Relationship Specialty Start Date End Date Val Brothers MD PCP - General Internal Medicine 05/01/18
--- OUTSIDE RECORDS SUMMARY | 2025-01-08 09:23 | XMS_ITS | Patient Health Record ---
Author Organization [facility] Address [address] [place] [address] Care Team Providers Care Pump Attendant Name Role Phone Val Brothers MD Primary Care Provider Todd Briseno Jr Unavailable [phone] Allergies Allergen (clinical drug ingredient) Drug/Non Drug [...] Problem Status W/U Status Risk Notes Problem [id number] Colon cancer screening (Z12.11) Active confirmed Problem [id number] Right sided abdominal pain (R10.9) Active confirmed Plan Of Treatment Future Test Test Name Order Date COLONOSCOPY 02/20/2019 Insurance Providers Payer Name Payer Address Payer Phone Subscriber Number Group Number Insured Name Patient Relationship to Insured Coverage Start Date Coverage End Date [facility] [address] [address] [place] [address] [id number] TONY PARRA Self - patient is the insured Medical (General) History Medical History History ICD Code hyperlipidemia thyroid disease Surgical History Surgery Date(Month/Year) tubal ligation
== END 2025-01-08 09:20 | disposition home or self-care (01) ==
LOC: HO.HMCC 08:23
PROVIDERS: PCP Internal Medicine; Visit Provider Internal Medicine
DX: I72.2 Aneurysm of renal artery (principal); E03.9 Hypothyroidism, unspecified; E55.9 Vitamin D deficiency, unspecified; Z00.00 Encounter for general adult medical examination without abnormal findings

== ENCOUNTER → 2025-01-08 08:22 | Outpatient (BNVA) | payer OTHER, SELFPAY | PROVIDERS: PCP Internal Medicine; Visit Provider Internal Medicine | DX: Z00.00 Encounter for general adult medical examination without abnormal findings (principal); I72.2 Aneurysm of renal artery; E03.9 Hypothyroidism, unspecified; E55.9 Vitamin D deficiency, unspecified; Z79.899 Other long term (current) drug therapy; Z13.31 Encounter for screening for depression; Z13.39 Encounter for screening examination for other mental health and behavioral disorders | CPT/HCPCS: 96127; 99396 ==